=== PATIENT | female | born 1995 | race Caucasian/White ===

== ENCOUNTER 2019-12-13 14:25 | Outpatient (RCR) | payer MEDICAID, SELFPAY | END 2020-01-08 23:59 | disposition home or self-care (01) | LOC: SPT 14:25 | PROVIDERS: PCP Family Medicine; Visit Provider Family Medicine | DX: M54.5 Low back pain (principal); G89.29 Other chronic pain | CPT/HCPCS: 97110; 97161 ==

== ENCOUNTER 2020-01-09 06:00 | Outpatient (RCR) | payer MEDICAID, SELFPAY | END 2020-02-08 23:59 | disposition home or self-care (01) | LOC: SPT 06:00 | PROVIDERS: PCP Family Medicine; Visit Provider Family Medicine | DX: G89.29 Other chronic pain (principal); M54.5 Low back pain | CPT/HCPCS: 97110; 97164 ==

== ENCOUNTER 2020-03-18 08:33 | Outpatient (CLI) | payer MEDICAID, SELFPAY ==
--- NOTE | 2020-03-18 09:12 | MR_ITS ---
WS: [id number] MRI LUMBAR SPINE NONCONTRAST HISTORY: CHRONIC LBP COMPARISON: None available. TECHNIQUE: Sagittal and axial multisequence imaging is submitted. Very small central disc protrusion at C5-6. Normal lumbar alignment with no compression fractures or marrow edema. Disc spaces and vertebral body heights are well-preserved. Conus terminates normally at L1-2 disc level. L1-L2: Normal. L2-L3: Normal. L3-L4: Normal. L4-L5: Normal. L5-S1: Mild bilateral facet joint arthritis. There is a very shallow central to RIGHT paracentral dis c protrusion. No significant stenosis. Very minimal bilateral facet joint cysts and fluid in the face t joints. MR/MR lumbar spine wo con* [id number] IMPRESSION: 1. No significant central or foraminal stenosis. 2. Shallow central to RIGHT paracentral disc protrusion at L5-S1 without signi ficant encroachment upon the nerve roots. 3. Bilateral mild facet joint arthritis and synovitis at L5-S1.
== END 2020-03-18 08:34 | disposition home or self-care (01) ==
LOC: RADWPI 08:38
PROVIDERS: PCP Family Medicine; Visit Provider Family Medicine
DX: G89.29 Other chronic pain (principal); M51.27 Other intervertebral disc displacement, lumbosacral region; M65.9 Synovitis and tenosynovitis, unspecified; M47.817 Spondylosis without myelopathy or radiculopathy, lumbosacral region
CPT/HCPCS: 72148

== ENCOUNTER 2020-04-04 22:39 | Emergency (ER) | payer MEDICAID, SELFPAY ==
[2020-04-04 22:52] VITALS: BP 131/85; PULSE 107; RESP 14; TEMP 36.7; O2SAT 100; BMI 42.5
--- NOTE | 2020-04-04 22:57 | ED_ITS ---
HPI - Fall General: Chief Complaint: Fall Stated Complaint: FELL DOWN STAIRS, TWISTED BOTH KNEES Time Seen by Provider: 04/04/20 22:49 History of Present Illness: HPI Narrative: Patient is a 24-year-old female comes to the ED with left and right ankle injury. Injury occurred just prior to arrival. Patient says she was walking down stairs and putting her jacket on when she twisted her left ankle. She says she felt a pop and immediately had some pain. She continued walking down steps and twisted her right ankle as well. She says she felt a pop when twisting her right ankle as well. She rates her current pain a 7 out of 10. She says she has swelling in both her right and left ankles but says her right ankle hurts more than her left. She is able to put a little bit of weight on her left foot but is unable to put weight on her right due to pain. Denies any head trauma or loss of consciousness. Patient has not taken any pain meds before coming to the ED Associated symptoms-after fall: Denies abdominal pain, chest pain, headache(s), hematuria or neck pain Review of Systems Const: Denies: fever(s), chills or fatigue Eyes: Denies: change in vision or eye discomfort ENMT: Denies: throat pain, odynophagia, nasal discharge or nasal congestion Card: Denies: chest pain, palpitations, edema, swelling of feet/ankles, dysp karen on exertion or orthopnea Resp: Denies: dyspnea, productive cough or non-productive cough GI: Denies: abdominal pain, nausea, vomiting, diarrhea, constipation or hematochezia : Denies: flank pain, dysuria or hematuria Musc: Reports: extremity pain (Right and left ankle pain.) and extremity swelling; Denies: neck pain or back pain Skin/Breast: Denies: rash or new lesions Neuro: Denies: headache(s), numbness in extremities or weakness in extremities Physical Exam Const: COMMON NORMALS: no acute distress, patient oriented x3 and alert GENERAL APPEARANCE: cooperative and comfortable HENMT: COMMON NORMALS: normocephalic HEAD & SCALP: normocephalic MOUTH: Normal oral and palatal mucosa present THROAT: posterior oropharynx normal and uvula midline Eye: COMMON NORMALS: Equal, round and reactive pupils present PUPIL: Yes Equal, round and reactive pupils present Neck/C-Spine: COMMON NORMALS: supple GENERAL: Yes normal visual inspection Resp: COMMON NORMALS: normal respiratory effort, No retractions, No use of accessory muscles and clear to auscultation bilaterally AUSCULTATION: clear to auscultation bilaterally Cardio: COMMON NORMALS: regular rate, regular rhythm, S1 normal heart sound present, S2 normal heart sound present, No gallops present (Cardio), No clicks present (Cardio), No murmurs present (Cardio) and Peripheral pulses 2+ throughout RATE: regular rate RHYTHM: regular rhythm HEART SOUNDS: S1 normal heart sound present and S2 normal heart sound present PERIPHERAL PULSES: Peripheral pulses 2+ throughout GI: COMMON NORMALS: Normal to inspection, nondistended, normoactive bowel sounds present, Soft to palpation, non-tender and no masses PALPATION: Yes Soft to palpation : COMMON NORMALS: Yes no CVA tenderness BLADDER/KIDNEY EXAM: Yes no CVA tenderness Back/Pelvis: COMMON NORMALS: no CVA tenderness Extremity: GENERAL: Yes normal exam except as noted RIGHT LOWER EXTREMITY: Yes foot & digits Right ankle: Yes inspection (Mild swelling and ecchymosis over lateral malleolus. No visible deformity), Yes palpation (Tenderness to palpation over lateral malleolus.), Yes ROM (Limited due to pain) and Yes neurovascular exam (Intact, pedal pulse 2+.) LEFT LOWER EXTREMITY: Yes ankle joint (Mild swelling and ecchymosis over lateral malleolus. No visible deformity) Left ankle: Yes inspection, Yes palpation (Tenderness to palpation over lateral malleolus.), Yes ROM (Limited due to pain) and Yes neurovascular exam (Hand pedal pulse 2+) Neuro: COMMON NORMALS: patient oriented x3 and moves all extremities SENSORIUM/ORIENTATION: Yes alert Skin: GENERAL SKIN EXAM: dry skin Course Vital Signs: Vital signs: Vital Signs Temperature 98.1 F 04/04/20 22:52 Pulse Rate 88 04/04/20 23:26 Respiratory Rate 16 04/04/20 23:26 Blood Pressure 140/75 04/04/20 23:26 Pulse Oximetry 99 04/04/20 23:26 MDM - Fall MDM Narrative: Medical decision making narrative: Patient is a 24-year-old female comes to the ED with right left ankle injury. Injury occurred just prior to arrival. Patient was walking down steps and twisted both ankles. Upon exam patient has some swelling in both right and left ankles over the lateral malleolus. Patient is complaining of having more pain in right ankle than the left. No visible deformity seen. Patient neurovascular intact distally on both right and left foot. Pedal pulse 2+ bilaterally. Left ankle x-ray shows no acute fractures or findings. Right ankle x-ray shows nondisplaced distal fibula fracture and nondisplaced medial malleolus fracture of tibia. Patient's right leg was put in a posterior leg splint with stirrup. She is given crutches and I placed an order with case management to refer patient to orthopedic for reevaluation. Patient was discharged diagnosed with a right ankle fracture and a left ankle sprain. She was told to rest ice and elevate left and right ankle to help with symptoms. She was given a written prescription for [place] 5/325 mg tablets, 12 total. She was given crutches and told to not weight-bear on right foot. Return to ED precautions given. Informed her that embedded case manager will be contacting her to set up appoint with orthopedic doctor. Patient understood and agreed with plan. Imaging Data^: Xray Ortho: Attestation: I personally reviewed and interpreted this imaging study as follows: My impression: Left ankle?no acute fractures or findings. Soft tissue swelling over lateral malleolus. Right ankle [id number] fracture of distal fibula. Nondisplaced fracture of the medial malleolus of the distal tibia. Discharge Plan Discharge Patient Disposition: Home Clinical Impression: Ankle fracture, right Qualifiers: Encounter type: initial encounter Fracture type: closed Qualified Code(s): S82.891A - Other fracture of right lower leg, initial encounter for closed fracture Ankle sprain Qualifiers: Encounter type: initial encounter Involved ligament of ankle: anterior talofibular ligament Laterality: left Qualified Code(s): S93.492A - Sprain of other ligament of left ankle, initial encounter Condition: Stable Discharge Orders: Discharge ED (Routine); Ordered 04/04/20 Ordered By: Juan Reyes Referrals: Erica Lara MD [Primary Care Provider] - Discharge Diet: Regular Discharge Activity: Limit activity as instructed Patient Instructions: Ankle Fracture (ED), Ankle Sprain (ED), Opioid Safety Activity Restrictions/Additional Instructions: Follow-up with medical provider as directed. Case management should be contacting you in the next several days to set up an appointment with orthopedic doctor for reevaluation. Take medications as prescribed. Rest, ice and elevate left foot to help with symptoms. Use crutches and no weightbearing on right foot. Keep splint on and dry. You can also take [id number] naproxen or ibuprofen to help with pain per bottle instructions. Return to the ER or your medical provider if condition worsens. Please read and understand discharge instructions. If any questions, please ask. Stand Alone Forms: Work/School Release Coding Level of Care Code ED Staffing Associate for Ashleigh Fwd Exam Comprehensive
--- NOTE | 2020-04-04 23:05 | XR_ITS ---
WS: [id number] RIGHT ANKLE: 3 VIEW(S) TECHNIQUE: AP, oblique(s) and lateral. HISTORY: twist ankle injury COMPARISON: None available. Spiral type fracture of the distal third of the fibula without displacement. Fractures above the synd esmosis. Additional transverse fracture through the medial malleolus. No significant displacement. On the lateral projection there is a very subtle lucency through the posterior tibia. Cannot completely exclude a distal tibial fracture. Small joint effusion. No significant degenerative changes at the joint spaces. Moderate amount of soft tissue edema surrounding the ankle. XR/XR ankle RT min 3V* [id number] IMPRESSION: 1. Nondisplaced spiral fracture distal third of the fibula. 2. Nondisplaced transverse fracture medial malleolus. 3. Additional vague lucency through the posterior tibia. If this is a fracture there will be healing and callus formation on follow-up radiographs.
--- NOTE | 2020-04-04 23:05 | XR_ITS ---
WS: [id number] LEFT ANKLE: 3 VIEW(S) TECHNIQUE: AP, oblique(s) and lateral. HISTORY: twist ankle injury COMPARISON: 05/09/2018 No ankle fracture. There is a very tiny probable avulsion fracture from the lateral hindfoot. This is probably from the calcaneus. No joint effusion or widening of the ankle mortise. No significant degenerative changes at the joint spaces. Large amount of soft tissue edema along the lateral and anterior ankle. XR/XR ankle LT min 3V* [id number] IMPRESSION: 1. No ankle fracture. 2. Suspect tiny avulsion fracture from the lateral calcaneus. Seen only on the AP projection. If this is a fracture it may be very difficult to visualize by radiograph. CT may be necessary. 3. Large amount of soft tissue edema along the lateral anterior ankle.
[2020-04-04] MEDS: HYDROcodone-acetaminophen 7.5-325 mg Tablet 1 TAB PO (23:22)
[2020-04-04 23:26] VITALS: BP 140/75; PULSE 88; RESP 16; O2SAT 99
[2020-04-05] MEDS: HYDROcodone-acetaminophen 7.5-325 mg Tablet 2 TAB PO (00:45)
[2020-04-05 00:52] VITALS: BP 147/68; PULSE 82; RESP 16; TEMP 36.7; O2SAT 93
--- NOTE | 2020-04-05 08:47 | DCPLANNER ---
cemetery manager had message to schedule a follow up appointment for patient with ortho. cemetery manager called the ortho clinic, spoke with [place], gave clinic patients information. cemetery manager was told that patients information would be printed and reviewed. Clinic will call patient with appointment information.
--- NOTE | 2020-04-09 07:41 | DCPLANNER ---
Patient had a follow up appointment scheduled for 04.08.[address] Loving at [facility] - patient did attend appointment.
== END 2020-04-05 00:52 | disposition home or self-care (01) ==
PROVIDERS: Emergency Provider Physician Assistant; PCP Family Medicine
DX: S82.891A Other fracture of right lower leg, initial encounter for closed fracture (principal); S93.492A Sprain of other ligament of left ankle, initial encounter; X50.1XXA Overexertion from prolonged static or awkward postures, initial encounter
CPT/HCPCS: 29505; 73610; 99283; E0114

== ENCOUNTER 2020-04-08 14:55 | Outpatient (CLI) | payer MEDICAID, SELFPAY | END 2020-04-08 14:56 | disposition home or self-care (01) | LOC: SPT 14:55 | PROVIDERS: PCP Family Medicine; Visit Provider Orthopaedic Surgery | DX: Z46.89 Encounter for fitting and adjustment of other specified devices (principal); S82.841D Displaced bimalleolar fracture of right lower leg, subsequent encounter for closed fracture with routine healing; X58.XXXD Exposure to other specified factors, subsequent encounter | CPT/HCPCS: 87635; 97760; L4361 ==

== ENCOUNTER 2020-04-11 11:44 | Day surgery (SDC) | payer MEDICAID, SELFPAY ==
[2020-04-10 14:04] VITALS: BMI 42.5
--- NOTE | 2020-04-11 | SCC_ITS ---
Procedure Done: Lesion right medial and lateral malleolus 16.9 seconds of fluoroscopic guidance, for a cumulative dose of 0.39 mGy, was provided to Dr. Loving by the radiology department. C-arm images of the RIGHT ankle were saved for the patient's permanent record. [facility] HOSPITALChela
[2020-04-11 12:07] VITALS: BP 126/78; PULSE 96; RESP 18; TEMP 36.3; O2SAT 97
[2020-04-11 12:19] LABS: OR HCG Qualitative Urine Negative (Negative)
[2020-04-11] MEDS: sodium chloride 0.9% 1,000 ML 30 ML IV (12:21)
[2020-04-11] MEDS: midazolam 1 mg/mL INJ 2 mL 2 MG IVP (12:45)
--- NOTE | 2020-04-11 12:45 | ANES.PREANE2 ---
Pre-Anesthetic Assessment Pre-Anesthetic Assessment: Height/Weight: Height 1.63 m Weight 112.491 kg Temp Pulse Resp BP Pulse Ox 97.4 F L 96 18 126/78 97 04/11/20 12:07 04/11/20 12:07 04/11/20 12:07 04/11/20 12:07 04/11/20 12:07 Preop Diagnosis: Fracture right medial and lateral malleolus Proposed Procedure: Operation Date: 04/11/20 13:20 Proposed Procedures p ORIF right Ankle 11269 s82.841A(Right) - Rick Loving MD Familial anesthetic complications: None Was Beta Dre taken within 24 hours: N/A Last intake: Intake Last Liquid Date 04/10/20 Last Liquid Time 23:00 Last Solid Date 04/10/20 Last Solid Time 23:00 Social: Social History: No alcohol and No tobacco Exam: Pre-Anes Outpt Exam: alert, oriented x 3, clear to auscultation bilaterally and regular rate & rhythm Airway: Cervical ROM: WNL MP: 3 Dentition: Other (front tooth (fake/capped)) Metabolic: Metabolic: Morbid obesity Anesthetic Plan: ASA status: 1 Anesthesia: General and Regional (specify below) Risk of > 500 ml blood loss (7ml/kg in children): No Meds/Allergies Current Medications: Current Medications Generic Name Dose Route Start Last Admin Trade Name Freq PRN Reason Stop Dose Admin Sodium Chloride 1,000 mls @ 30 ml s/hr 04/11/20 12:00 04/11/20 12:21 Sodium Chloride 0.9% IV 04/12/20 11:59 30 mls/hr .Q24H FABIO Administration Data Anesthesia Other Labs: Laboratory Results - last 48 hr 04/11/20 12:17 Urine HCG, Qual Negative Cardiac Studies: No Data to Display
--- NOTE | 2020-04-11 12:46 | ANES.PROC ---
Anesthesia Procedures Procedure/Date: 04/11/20 Nerve Block ^: Nerve Block 1: Main Anesthesia: general anesthesia Time Out Performed: Yes Consent: requested by attending/covering physician, from patient, from other, risks and benefits reviewed and patient agrees to proceed Nerve block location: popliteal (R) Anesthesia monitors applied: pulse oximetry, EKG, BP cuff and oxygen Nerve block position: supine Anesthetic Used: ropivicaine 0.5% and with decadron (4 mg) Amount of anesthesia used (mL): 30 Ultrasound used to: recognize landmarks Nerve Stimulator Used?: No Interscalene/Femoral BLK: 4 stimuplex 21 g needle used for position and inplane approach, visualize local anesthetic spread and no vascular puncture identified Injection: neg aspiration of heme Patient Tolerated Procedure: no complications Complications: none
--- NOTE | 2020-04-11 16:07 | W.PM.OPSUD ---
Surgery/Procedure H&P Update DATE OF PROCEDURE: April 11, 2020 DATE H&P PERFORMED: 04/08/20 H&P UPDATE INFORMATION: I have reviewed H&P completed within last 30 days, I have examined patient prior to procedure and No changes to prior documentation PREOP DIAGNOSIS: Fracture right medial and lateral malleolus PLANNED PROCEDURE: Operation Date: 04/11/20 13:20 Proposed Procedures p ORIF right Ankle 90954 s82.841A(Right) - Rick Loving MD
[2020-04-11 17:28] VITALS: BP 134/60; PULSE 101; RESP 16; TEMP 36.5; O2SAT 96
[2020-04-11 17:34] VITALS: BP 138/60; PULSE 101; RESP 18; O2SAT 99
[2020-04-11 17:39] VITALS: BP 122/79; PULSE 101; RESP 19; TEMP 36.3; O2SAT 98
[2020-04-11 17:41] VITALS: BP 118/72; PULSE 100; RESP 16; TEMP 36.6; O2SAT 96
--- NOTE | 2020-04-11 17:42 | XR_ITS ---
WS: [id number] Right ankle, AP and lateral views with C-arm fluoroscopy, 04/11/2020 Clinical Data: ORIF RT. ANKLE Comparison: None. Findings: There is a distal fibular plate applied with multiple screws reduce distal right fibular fracture. Th ere are oblique screws reducing the medial malleolar fracture. XR/XR ankle RT 2V 25152 Impression: Internal fixation of bimalleolar fracture.
--- NOTE | 2020-04-11 17:48 | PM.OP ---
Operative Report Date of procedure: April 11, 2020 Pre-op Diagnosis: Fracture right medial and lateral malleolus Post-op diagnosis: same Post-op Findings: Same Procedure Done: Lesion right medial and lateral malleolus Implants: Jessi Variax 7 hole semitubular plate with 6 screws 2 4.0 mm canulated with washers Pathology: none sent Surgeon: Rick Loving Anesthesia: General Estimated blood loss (mL): 20 Tourniquet time (min): 52 Findings: The patient is a low transverse fracture of the right medial malleolus and a spiral fracture of the lateral malleolus just above the level of the mortise Condition: stable Disposition: PACU Procedure: The patient was taken to the operating room and given 2 g of Ancef. General anesthesia is provided. She is prepped and draped with a bump under the right hip. Timeout was performed. A tourniquet was inflated to 350 mm due to the size the patient's leg. A 5 cm long incision was made over the posterior fibula overlying the fracture. Dissection was carried down full-thickness to the lateral periosteum. A lobster claw clamp was used to bring the fibula to length and reduced it. It was held fixed with a single 3.5 millimeter screw. A 7 hole semitubular plate was then contoured posteriorly. It was fixed distally and proximally with 3 screws each providing a buttress to the fracture. Eight 4 cm long incision was made over the medial malleolus dissection carried down full-thicknes to the fracture fragments. Periosteum was elevated from the fracture site with a scalpel. A towel clamp was used to reduce the tip of the medial malleolus to the distal tibia. The 4.0 mm Asnis screws were used to passed to partially-threaded cancellous screws with washers from the tip of the fragment proximally both with excellent fixation. Intraoperative imaging showed anatomic alignment of the fracture fragments. Wounds were irrigated with saline. Deep tissues were closed with 2-0 Vicryl. The skin was closed with christ bilaterally. Xeroflo gauze, 4 x 4's, web roll, and an Mitchell wrap were applied. This patient was placed in a postop boot. She was extubated and taken to recovery room in stable condition.
[2020-04-11 17:56] VITALS: BP 123/71; PULSE 90; RESP 16; TEMP 36.6; O2SAT 97
--- NOTE | 2020-04-11 18:01 | ANE.PACU2 ---
Inpatient post-anesthesia follow up: Vital signs: Temperature 98 F Pulse Rate 100 Respiratory Rate 16 Blood Pressure 118/72 Pulse Oximetry 96 Oxygen Delivery Me thod Room Air Oxygen Flow Rate 8 Fraction of Inspir ed Oxygen Nausea and vomiting: No Pain level: 2 Mental status: Baseline
== END 2020-04-11 19:00 | disposition home or self-care (01) ==
PROVIDERS: PCP Family Medicine; Visit Provider Orthopaedic Surgery
PROC: (CPT 27814; principal; 2020-04-11 13:20)
DX: S82.844A Nondisplaced bimalleolar fracture of right lower leg, initial encounter for closed fracture (principal); X58.XXXA Exposure to other specified factors, initial encounter; E66.01 Morbid (severe) obesity due to excess calories; Z68.41 Body mass index [BMI] 40.0-44.9, adult
CPT/HCPCS: 27814; 64450; 73600; 76000; 76942; 81025; 84703; C1713; J0690; J1100; J1580; J2250; J2405; J2795; J3010; J7030

== ENCOUNTER → 2020-05-21 13:38 | Outpatient (BNVA) | payer MEDICAID, SELFPAY | PROVIDERS: PCP Family Medicine; Visit Provider Orthopaedic Surgery | DX: Z48.89 Encounter for other specified surgical aftercare (principal) | CPT/HCPCS: 73610 ==

== ENCOUNTER → 2020-06-11 14:30 | Outpatient (BNVA) | payer MEDICAID, SELFPAY | PROVIDERS: PCP Family Medicine; Visit Provider Orthopaedic Surgery | DX: Z48.89 Encounter for other specified surgical aftercare (principal) | CPT/HCPCS: 73610 ==

== ENCOUNTER → 2020-07-09 14:27 | Outpatient (BNVA) | payer MEDICAID, SELFPAY | PROVIDERS: PCP Family Medicine; Visit Provider Orthopaedic Surgery | DX: Z47.89 Encounter for other orthopedic aftercare (principal) | CPT/HCPCS: 73610 ==

== ENCOUNTER 2020-12-06 21:36 | Emergency (ER) | payer MEDICAID, SELFPAY ==
[2020-12-06 21:58] VITALS: BP 133/77; PULSE 98; RESP 18; TEMP 36.4; O2SAT 96; BMI 42.9
--- NOTE | 2020-12-06 23:37 | W.ED.SOB ---
Documented by User: HANNAH Pan 12/07/20 01:01 HPI - SOB/Dyspnea General: Chief Complaint: Shortness of Breath/Dyspnea Stated Complaint: N\V\Coughing SOB Time Seen by Provider: 12/06/20 23:37 History of Present Illness: HPI Narrative: Patient comes in with frequent coughing for last 3 months. Patient also reports some episodes of shortness of breath that seem to have worsened over the last 3 to 4 days. Patient states that she has been evaluated several times and been told she had a viral infection. This last time she complained of some sore throat and was evaluated and instructed that she had a's viral infection. Patient reports that her over the last couple days though her shortness of breath is worsened. Patient appears in no acute distress. Patient appears well. Patient appears in no pain. Patient reports that she has a history of asthma as a child. Patient denies smoking but is exposed to it to secondhand. MD elicited complaint: shortness of breath and cough Review of Systems General: Reports: 10 or more systems reviewed and unremarkable except in HPI and below Resp: Reports: dyspnea and non-productive cough Physical Exam Const: COMMON NORMALS: no acute distress and patient oriented x3 GENERAL APPEARANCE: cooperative HENMT: COMMON NORMALS: normocephalic and Normal external nose present HEAD & SCALP: normal to inspection and normocephalic NOSE: Normal external nose present MOUTH: Normal oral and palatal mucosa present THROAT: posterior oropharynx normal Eye: GENERAL EYE: appearance normal, both eyes and all related structures Neck/C-Spine: COMMON NORMALS: full ROM Lymph: LYMPHATIC: no lymphadenopathy noted Chest: COMMONS NORMALS: normal inspection of the chest Resp: COMMON NORMALS: normal respiratory effort EFFORT & INSPECTION: Yes able to speak in complete sentences AUSCULTATION: wheezes Cardio: COMMON NORMALS: regular rate and regular rhythm RATE: regular rate RHYTHM: regular rhythm GI: COMMON NORMALS: non-tender Back/Pelvis: COMMON NORMALS: thoracic and lumbar spine normal to inspection Extremity: COMMON NORMALS: normal to inspection Neuro: COMMON NORMALS: patient oriented x3 and moves all extremities Psych: COMMON NORMALS: mental status grossly normal and cooperative Skin: COMMON NORMALS: no rashes or lesions noted GENERAL SKIN EXAM: no rashes or lesions noted Course Vital Signs: Vital signs: Vital Signs Temperature 97.6 F 12/06/20 21:58 Pulse Rate 86 10/30/21 01:27 Respiratory Rate 18 12/07/20 01:27 Blood Pressure 126/74 12/07/20 01:27 Pulse Oximetry 97 12/07/20 01:27 MDM - SOB/Dyspnea MDM Narrative: Medical decision making narrative: 25-year-old female comes in today with persistent cough on and off for the last 3 months. Patient also reports episodes of wheezing at times. Patient has been given albuterol inhaler and oral steroids and antibiotics with minimal to no relief. On exam patient appears in no acute distress. Patient has wheezing throughout lung galloway. Skin is warm and dry. Differential diagnosis includes but not limited to asthma, bronchitis, pneumonia. Chest x-ray appeared normal. Patient was given a respiratory treatment of albuterol and ipratropium with improvement in lung sounds. Patient denied any smoking but does get secondhand smoke through her fianc?. Plan for patient to be started on Advair Diskus 250 per 50 twice daily and albuterol as needed. Patient was given 1 dose of dexamethasone 10 mg in the ER. Case management was requested for patient to follow-up with pulmonology for further testing and evaluation. Discharge Plan Discharge Patient Disposition: Home Clinical Impression: Asthma with exacerbation Qualifiers: Asthma severity: moderate Asthma persistence: persistent Qualified Code(s): J45.41 - Moderate persistent asthma with (acute) exacerbation Condition: Stable Prescriptions: New Advair Diskus 250-50 mcg/dose blister with device 1 inh inhalation BID Qty: 60 RF: 3 albuterol sulfate 90 mcg/actuation HFA aerosol inhaler 2 inh inhalation Q4H PRN (Reason: shortness of breath or wheezing) Qty: 8.5 RF: 0 No Action (DME) Luigi Walker See Rx Instructions .ROUTE .MEDSUPPLY Qty: 1 RF: 0 Discharge Orders: Discharge ED (Routine); Ordered 12/07/20 Ordered By: Sidney Buenrostro Referrals: Erica Lara MD [Primary Care Provider] - Discharge Diet: Usual diet Discharge Activity: Increase activity as tolerated Patient Instructions: Asthma (ED), Opioid Safety Activity Restrictions/Additional Instructions: Use Advair Diskus inhaler 1 inhalation twice a day. Do good oral care after inhalation. Use albuterol as needed for respiratory difficulty. Drink plenty of water. Use acetaminophen and ibuprofen for discomfort. Follow-up with primary care in 1 week for recheck. Coding Level of Care Code ED Administrative Project Coordinator for Chg Fwd Exam Comprehensive Documented by User: Tre Stoner DO 12/07/20 02:56 HPI - SOB/Dyspnea General: Chief Complaint: Shortness of Breath/Dyspnea Stated Complaint: N\V\Coughing SOB Time Seen by Provider: 12/06/20 23:37 Course Vital Signs: Vital signs: Vital Signs Temperature 97.6 F 12/06/20 21:58 Pulse Rate 86 12/07/20 01:27 Respiratory Rate 18 12/07/20 01:27 Blood Pressure 126/74 12/07/20 01:27 Pulse Oximetry 97 12/07/20 01:27 MDM - SOB/Dyspnea MDM Narrative: Medical decision making narrative: This patient was originally seen by HANNAH Del Valle. I agree with his history, evaluation, and treatment. Discharge Plan Discharge Patient Disposition: Home Clinical Impression: Asthma with exacerbation Qualifiers: Asthma severity: moderate Asthma persistence: persistent Qualified Code(s): J45.41 - Moderate persistent asthma with (acute) exacerbation Condition: Stable Prescriptions: New Advair Diskus 250-50 mcg/dose blister with device 1 inh inhalation BID Qty: 60 RF: 3 albuterol sulfate 90 mcg/actuation HFA aerosol inhaler 2 inh inhalation Q4H PRN (Reason: shortness of breath or wheezing) Qty: 8.5 RF: 0 No Action (DME) Cam Walker See Rx Instructions .ROUTE .MEDSUPPLY Qty: 1 RF: 0 Discharge Orders: Discharge ED (Routine); Ordered 12/07/20 Ordered By: Sidney Buenrostro Referrals: Erica Lara MD [Primary Care Provider] - Discharge Diet: Usual diet Discharge Activity: Increase activity as tolerated Patient Instructions: Asthma (ED), Opioid Safety Activity Restrictions/Additional Instructions: Use Advair Diskus inhaler 1 inhalation twice a day. Do good oral care after inhalation. Use albuterol as needed for respiratory difficulty. Drink plenty of water. Use acetaminophen and ibuprofen for discomfort. Follow-up with primary care in 1 week for recheck. Coding Level of Care Code ED Administrative Project Coordinator for Ashleigh Fwd Exam Comprehensive
--- NOTE | 2020-12-06 23:45 | XRR_ITS ---
PROCEDURE INFORMATION: Exam: XR Chest Exam date and time: 12/06/2020 11:45 PM Age: 25 years old Clinical indication: Cough and wheezing; Patient HX: Cough/wheezing. TECHNIQUE: Imaging protocol: XR of the chest. Views: 1 view. COMPARISON: No relevant prior studies available. FINDINGS: Lungs: Unremarkable. No consolidation. Pleural spaces: Unremarkable. No pleural effusion. No pneumothorax. Heart/Mediastinum: Unremarkable. No cardiomegaly. Bones/joints: Unremarkable. XR/XR chest 1V portable [id number] IMPRESSION: No acute findings. Radiation Dose CTDIVOL = (mGy): DLP = (mGy-cm)
[2020-12-07] MEDS: dexamethasone 4 mg Tablet 10 MG PO (00:11)
[2020-12-07 00:40] VITALS: PULSE 90; RESP 18; O2SAT 97
[2020-12-07] MEDS: ipratropium-albuterol 3 mL Neb INHALATION (00:40)
[2020-12-07 00:50] VITALS: PULSE 101
[2020-12-07 01:26] VITALS: BP 126/74; PULSE 86; RESP 18; O2SAT 97
[2020-12-07 01:27] VITALS: BP 126/74; PULSE 86; RESP 18; O2SAT 97
--- NOTE | 2020-12-12 13:30 | DCPLANNER ---
Addendum entered by Sindi Cruz 12/12/20 13:32: A follow up appointment is scheduled for Wednesday, January 20, 2021 at 8:[address] Bhagat. global marketing operations manager called phone number [phone], unable to speak with patient at this time, a voicemail was left for patient with the appointment information. Original Note: global marketing operations manager had message to schedule a follow up appointment for patient with [facility]. global marketing operations manager called [facility], spoke with Paola, gave clinic patients information. global marketing operations manager was told that patients information would be printed and reviewed. Clinic will call patient with appointment information.
--- NOTE | 2021-01-31 12:00 | DCPLANNER ---
Patient had a follow up appointment scheduled with [facility] - patient did attend appointment.
== END 2020-12-07 01:20 | disposition home or self-care (01) ==
PROVIDERS: Emergency Provider Nurse Practitioner Family; PCP Family Medicine
DX: J45.41 Moderate persistent asthma with (acute) exacerbation (principal)
CPT/HCPCS: 71045; 94640; 99283; J8540

== ENCOUNTER 2021-01-20 10:08 | Outpatient (CLI) | payer MEDICAID, SELFPAY ==
[2021-01-20 11:26] LABS: Basophils # 0.1 10^3/uL (0.0-0.1); Basophils % 0.7 %; Eosinophils % 10.1 %; Hematocrit 42.9 % (37.0-47.0); Hemoglobin 14.4 g/dL (11.5-15.3); Lymphocytes # 2.9 10^3/uL (0.8-4.8); Lymphocytes % 30.4 %; Mean Corpuscular HGB Conc 33.6 g/dL (30.0-36.0); Mean Corpuscular Hemoglobin 27.7 pg (28.0-34.0); Mean Corpuscular Volume 82.5 fl (81-99); Mean Platelet Volume 9.3 fL (7.4-10.4); Monocytes # 0.6 10^3/uL (0.2-0.9); Monocytes % 6.1 %; Neutrophils % 52.4 %; Nucleated Red Blood Cells % 0 %; Platelet Count 380 10^3/cmm (130-400); Red Cell Distribution Width 12.9 % (12.1-15.1); White Blood Count 9.4 10^3/uL (4.0-10.0)
[2021-01-21 16:07] LABS: Immunoglobulin E 710 kU/L (<OR=114)
[2021-01-21 16:13] LABS: Alternaria Alternata (M6) Ige <0.10 kU/L; Alternaria Class 0; Bermuda Class 0/1; Bermuda Grass (G2) Ige 0.16 kU/L; Cat Dander (E1) Ige 0.22 kU/L; Cat Dander Class 0/1; D. Farinae Class 4; Dermatophagoides Class 4; Dog Dander (E5) Ige 2.38 kU/L; Dog Dander Class 2; Elm (T8) Ige 0.78 kU/L; Elm Class 2; House Dust (Greer) (H1) Ige 1.61 kU/L; House Dust (Hollister- Stier) 2.05 kU/L; House Dust Class 2; Immunoglobulin E 729 kU/L (<OR=114); Johnson Grass (G10) Ige 0.15 kU/L; Johnson Grass Cl 0/1; June Grass Class 0/1; June Grass(Kentucky Blue) (G8) 0.33 kU/L; Maple (Box Elder) (T1) Ige 0.56 kU/L; Maple Class 1; Meadow Fescue (G4) Ige 0.46 kU/L; Meadow Fescue Class 1; Mucor Racemosus Class 2; Oak (T7) Ige 0.52 kU/L; Oak Class 1; Orchard Grass (Cocksfoot) (G3) 0.29 kU/L; Penicillium Class 0; Penicillium Notatum (M1) Ige <0.10 kU/L; Perennial Rye Grass (G5) Ige 0.39 kU/L; Perennial Rye Grass Class 1; Sweet Vernal Class 0/1; Sweet Vernal Grass (G1) Ige 0.21 kU/L; Timothy Grass (G6) Ige 0.21 kU/L; Timothy Grass Class 0/1
[2021-01-23 17:42] LABS: English Plantain (W9) Ige 0.57 kU/L; English Plantain Class 1; Lamb'S Quarters (Goose Foot) 0.86 kU/L; Lamb'S Quarters Class 2; Ragweeed Class 3; Rough Marsh Elder (W16) Ige 0.27 kU/L; Rough Marsh Elder Class 0/1
[2021-01-23 22:53] LABS: Aspergillus Fumigatus, Igg Ab, 20.3 mg/L (<=102)
== END 2021-01-20 10:09 | disposition home or self-care (01) ==
PROVIDERS: PCP Family Medicine; Visit Provider Internal Medicine Critical Care Medicine
DX: R06.02 Shortness of breath (principal); J45.909 Unspecified asthma, uncomplicated
CPT/HCPCS: 36415; 82785; 85025; 86003

== ENCOUNTER → 2021-04-23 09:08 | Outpatient (BNVA) | payer MEDICAID, SELFPAY | PROVIDERS: PCP Family Medicine Adult Medicine; Visit Provider Internal Medicine Critical Care Medicine | DX: J45.50 Severe persistent asthma, uncomplicated (principal); G47.10 Hypersomnia, unspecified; F41.9 Anxiety disorder, unspecified; J45.909 Unspecified asthma, uncomplicated; F43.10 Post-traumatic stress disorder, unspecified | CPT/HCPCS: 99214 ==

== ENCOUNTER 2021-05-15 14:09 | Outpatient (CLI) | payer MEDICAID, SELFPAY ==
--- NOTE | 2021-05-15 10:51 | PFTS_ITS ---
Date of Study:05/15/21 Date of Dictation: MECHANICS: Forced vital capacity (FVC) is . Forced expiratory volume in one second (FEV1) is . FEV1/FVC is . FLOW VOLUME LOOP: . LUNG VOLUMES: Total lung capacity (TLC) is . Residual volume (RV) is . DIFFUSING CAPACITY FOR CARBON MONOXIDE: . INTERPRETATION: The pulmonary function tests are . mechanics and lung volumes. Gas exchange (DLCO) is . MTDD
--- NOTE | 2021-05-15 14:42 | PFTS_ITS ---
Date of Study:05/15/21 Date of Dictation: MECHANICS: Forced vital capacity (FVC) is normal. Forced expiratory volume in one second (FEV1) is . FEV1/FVC is normal. FLOW VOLUME LOOP: Scooping present. LUNG VOLUMES: Total lung capacity (TLC) is normal. Residual volume (RV) is increased. DIFFUSING CAPACITY FOR CARBON MONOXIDE: Increased. INTERPRETATION: The prebronchodilator spirometry is consistent with severe obstruction. The postbronchodilator spirometry is consistent with moderate obstruction. There is a significant postbronchodilator response. Lung volumes are consistent with air trapping. Gas exchange (DLCO) is increased. The pulmonary function test is suggestive of reversible airflow obstruction most likely asthma. MTDD
== END 2021-05-15 14:10 | disposition home or self-care (01) ==
LOC: RT 14:10
PROVIDERS: PCP Family Medicine Adult Medicine; Visit Provider Internal Medicine Critical Care Medicine
DX: J45.50 Severe persistent asthma, uncomplicated (principal)
CPT/HCPCS: 94060; 94726; 94729

== ENCOUNTER 2021-05-17 06:11 | Emergency (ER) | payer MEDICAID, SELFPAY ==
[2021-05-17 06:14] VITALS: BP 178/97; PULSE 113; RESP 27; TEMP 37.2; O2SAT 95; BMI 43.0
--- NOTE | 2021-05-17 06:15 | XRR_ITS ---
PROCEDURE INFORMATION: Exam: XR Chest Exam date and time: 05/17/2021 6:39 AM Age: 25 years old Clinical indication: Cough and dyspnea; Additional info: Dyspnea/cough TECHNIQUE: Imaging protocol: XR of the chest. Views: 1 view. COMPARISON: CR XR chest 1V portable [id number] 12/07/2020 12:02 AM FINDINGS: Lungs: Faint bibasilar airspace opacities. Pleural spaces: Unremarkable. No pleural effusion. No pneumothorax. Heart/Mediastinum: Cardiomediastinal silhouette is within normal limits. Bones/joints: Unremarkable. XR/XR chest 1V portable [id number] IMPRESSION: Faint bibasilar airspace opacities may reflect pneumonia.
[2021-05-17 06:23] VITALS: BP 178/97; PULSE 110; RESP 20; TEMP 37.1; O2SAT 99
--- NOTE | 2021-05-17 06:25 | ED_ITS ---
HPI - SOB/Dyspnea General: Chief Complaint: Shortness of Breath/Dyspnea Stated Complaint: shortness of breath Time Seen by Provider: 05/17/21 06:14 Source: patient Mode of arrival: ambulatory Limitations: no limitations History of Present Illness: HPI Narrative: 25-year-old female with a history of asthma precipitated by exposure to allergens she seen Dr. Bhagat in the past. She reportedly has been rubber months for the last 2 days been worse. She was seen last month by Dr. Bhagat and switched from Advair to Trelegy. She is also on cetirizine and Singulair although she has not been using any of those regularly she did mention using single doses of the Advair sometime in the last few days. She used an albuterol Atrovent treatment by nebulizer about an hour and a half before coming in and states it did not really work very well last night she was having trouble did not respond to albuterol then either. She has had a lot of increased nasal drainage recently and was treated with a course of antibiotics about 3 weeks ago. [facility] records patient lives at home with a cat. She does not smoke. MD elicited complaint: shortness of breath, cough and asthma attack Pertinent past history: asthma Onset (ago): minute(s) Context: allergen exposure Timing: intermittent and progressively worsening Severity: severe Exacerbating factors: exertion and coughing Relieving factors: nothing Known history of: asthma Associated symptoms: Reports chest congestion and cough; Deny abdominal pain, chest pain, diaphoresis, dizziness, extremity pain, fever(s), hemoptysis, lightheadedness, myalgias, nausea, orthopnea, palpitations, paresthesias, polydipsia, polyuria, rash, sense of impending doom, syncope or vomiting Treatment prior to arrival: none Review of Systems Const: Denies: fever(s) or diaphoresis ENMT: Denies: throat pain, ear or mastoid pain, nasal discharge or nasal congestion Card: Denies: chest pain, palpitations, lightheadedness, syncope or orthopnea Resp: Reports: dyspnea, non-productive cough, wheezing and chest congestion; Denies: hemoptysis GI: Denies: abdominal pain, nausea or vomiting : Denies: flank pain, difficulty voiding, dysuria, urinary frequency or urinary urgency Musc: Denies: extremity pain Skin/Breast: Denies: rash or pruritus Neuro: Denies: dizziness Endo: Denies: polyuria or polydipsia PFSH ED PFSH: Medical History Anxiety Asthma PTSD (post-traumatic stress disorder) Surgical History History of ankle surgery Family History Grandmother Cancer lung cancer Social History Smoking and tobacco status: never smoked Smoking risk assessment/counseling performed?: Yes Alcohol intake: never Physical Exam Const: COMMON NORMALS: no acute distress GENERAL APPEARANCE: cooperative and comfortable ORIENTATION/CONSCIOUSNESS: Yes awake, Yes oriented to person, Yes oriented to place and Yes oriented to time HENMT: COMMON NORMALS: normocephalic, atraumatic and hearing grossly normal bilaterally HEAD & SCALP: normocephalic and atraumatic Neck/C-Spine: COMMON NORMALS: no JVD Resp: EFFORT & INSPECTION: Yes uses accessory muscles AUSCULTATION: wheezes Cardio: COMMON NORMALS: no JVD, regular rhythm and No murmurs present (Cardio) RATE: tachycardic RHYTHM: regular rhythm GI: COMMON NORMALS: Soft to palpation and No hepatosplenomegaly present AUSCULTATION: Yes normoactive bowel sounds PALPATION: Yes Soft to palpation, No Tenderness to palpation present (GI), No Guarding due to palpation present (GI) and Yes No hepatosplenomegaly present Extremity: COMMON NORMALS: normal to inspection, capillary refill normal, no clubbing, cyanosis or edema, no calf tenderness and no pedal edema Neuro: SENSORIUM/ORIENTATION: Yes oriented to person, Yes oriented to place and Yes oriented to time Skin: COMMON NORMALS: no rashes or lesions noted GENERAL SKIN EXAM: no rashes or lesions noted Course Vital Signs: Vital signs: Vital Signs Temperature 98.8 F 05/17/21 06:23 Pulse Rate 105 H 05/17/21 07:11 Respiratory Rate 22 H 05/17/21 07:11 Blood Pressure 136/83 05/17/21 07:11 Pulse Oximetry 97 05/17/21 07:11 MDM - SOB/Dyspnea Medical Decision Making Reviewed labs and imaging with the patient. Her eosinophil count is elevated. Discussed with her allergen avoidance. She has not been able to start the Trelegy that Dr. Mathis previously prescribed encourage her to use the Advair regularly she had been using it more as needed discussed with her that the really intended to be a maintenance medicine. We will increase her cetirizine to twice daily prednisone burst and taper and also resume the Singulair Singulair and cetirizine should be regular routine medications for maintenance. Albuterol every 4 hours while awake if has any wheezing. Follow-up with Dr. Gilmore's office next week return if has problems. Stressed importance of allergen avoidance. Medical Records I reviewed the patient's medical records. Lab Data I reviewed the patient's lab results. : 05/17/21 06:30 Labs/Radiology: Laboratory Results WBC 11.2 10^3/uL (4.0-10.0) H 05/17/21 06:30 RBC 4.91 10^6/uL (4.1-5.3) 05/17/21 06:30 Hgb 13.4 g/dL (11.5-15.3) 05/17/21 06:30 Hct 40.7 % (37.0-47.0) 05/17/21 06:30 MCV 82.9 fl (81-99) 05/17/21 06:30 MCH 27.3 pg (28.0-34.0) L 05/17/21 06:30 MCHC 32.9 g/dL (30.0-36.0) 05/17/21 06:30 RDW 13.7 % (12.1-15.1) 05/17/21 06:30 Plt Count 348 10^3/cmm (130-400) 05/17/21 06:30 MPV 9.4 fL (7.4-10.4) 05/17/21 06:30 Neut % (Auto) 52.9 % 05/17/21 06:30 Lymph % (Auto) 28.3 % 05/17/21 06:30 [place] % (Auto) 5.3 % 05/17/21 06:30 Eos % (Auto) 12.5 % 05/17/21 06:30 Baso % (Auto) 0.6 % 05/17/21 06:30 Neut # (Auto) 5.91 10^3/uL (1.8-7.7) 05/17/21 06:30 Lymph # (Auto) 3.2 10^3/uL (0.8-4.8) 05/17/21 06:30 [place] # (Auto) 0.6 10^3/uL (0.2-0.9) 05/17/21 06:30 Eos # (Auto) 1.4 10^3/uL (0.0-0.8) H 05/17/21 06:30 Baso # (Auto) 0.1 10^3/uL (0.0-0.1) 05/17/21 06:30 Nucleated RBC % (auto) 0 % 05/17/21 06:30 Nucleated RBCs # 0.0 /100WBC 05/17/21 06:30 Discharge Plan Discharge Patient Disposition: Home Clinical Impression: Asthma with exacerbation Condition: Stable Prescriptions: New albuterol sulfate 90 mcg/actuation HFA aerosol inhaler 2 inh INHALATION Q4H PRN (Reason: shortness of breath or wheezing) Qty: 18 0RF prednisone 20 mg tablet 20 mg PO TID Qty: 15 0RF Rx Instructions: 1 p.o. 3 times daily x3 days, 1 p.o. twice daily x2 days, 1 p.o. daily x2 days No Action benzonatate [Tessalon Perles] 100 mg capsule 100 mg PO TID PRN (Reason: cough) 30 Days Qty: 90 2RF Trelegy Ellipta 200-62.5-25 mcg blister with device 1 inh inhalation Q24H 30 Days Qty: 60 3RF diphenhydramine HCl [Allergy Relief(diphenhydramin)] 25 mg tablet 25 mg PO Q6H PRN0RF albuterol sulfate 90 mcg/actuation HFA aerosol inhaler 2 inh inhalation Q4H PRN (Reason: shortness of breath or wheezing) Qty: 8.5 2RF cetirizine 10 mg tablet 10 mg PO DAILY PRN (Reason: allergy symptoms) Qty: 30 0RF montelukast [Singulair] 10 mg tablet 10 mg PO DAILY Qty: 30 3RF ipratropium-albuterol 0.5 mg-3 mg(2.5 mg base)/3 mL solution for nebulization 3 ml inhalation Q4H PRN (Reason: wheezing) Qty: 180 0RF amoxicillin-pot clavulanate [Augmentin] 875-125 mg tablet 1 tab PO BID 7 Days Qty: 14 0RF (DME) Nebulizer & supplies See Rx Instructions .Route .MEDSUPPLY Qty: 1 0RF Rx Instructions: As directed Spiriva Respimat 1.25 mcg/actuation mist 2 puff inhalation DAILY 30 Days Qty: 4 3RF Discharge Orders: Discharge ED (Routine); Ordered 05/17/21 Ordered By: Kenneth Castaneda Referrals: Danish Avalos MD [Primary Care Provider] - Discharge Diet: Usual diet Discharge Activity: Increase activity as tolerated Patient Instructions: Opioid Safety Activity Restrictions/Additional Instructions: Avoid allergens as much as possible. Use Advair regularly as prescribed. Use rescue inhaler or nebulizers every 4 hours as needed. Restart the cetirizine take 1 p.o. twice daily every day regularly. Also recommend you restart the montelukast 10 mg daily. Follow-up with Dr. [place] within the next week. Coding Level of Care Code ED Resource Paraprofessional for Ashleigh Fwd Exam Comprehensive
[2021-05-17] MEDS: ipratropium-albuterol 3 mL Neb INHALATION (06:30)
[2021-05-17 06:31] VITALS: PULSE 102; RESP 22; O2SAT 94
[2021-05-17 06:36] VITALS: PULSE 104
[2021-05-17 06:45] LABS: Basophils # 0.1 10^3/uL (0.0-0.1); Basophils % 0.6 %; Eosinophils # 1.4 10^3/uL (0.0-0.8); Eosinophils % 12.5 %; Hematocrit 40.7 % (37.0-47.0); Hemoglobin 13.4 g/dL (11.5-15.3); Lymphocytes # 3.2 10^3/uL (0.8-4.8); Lymphocytes % 28.3 %; Mean Corpuscular HGB Conc 32.9 g/dL (30.0-36.0); Mean Corpuscular Hemoglobin 27.3 pg (28.0-34.0); Mean Corpuscular Volume 82.9 fl (81-99); Mean Platelet Volume 9.4 fL (7.4-10.4); Monocytes # 0.6 10^3/uL (0.2-0.9); Monocytes % 5.3 %; Neutrophils # 5.91 10^3/uL (1.8-7.7); Neutrophils % 52.9 %; Nucleated Red Blood Cells % 0 %; Platelet Count 348 10^3/cmm (130-400); Red Blood Count 4.91 10^6/uL (4.1-5.3); Red Cell Distribution Width 13.7 % (12.1-15.1); White Blood Count 11.2 10^3/uL (4.0-10.0)
[2021-05-17 07:11] VITALS: BP 136/83; PULSE 105; RESP 22; O2SAT 97
== END 2021-05-17 07:13 | disposition home or self-care (01) ==
PROVIDERS: Emergency Provider Family Medicine; PCP Family Medicine Adult Medicine
DX: J45.901 Unspecified asthma with (acute) exacerbation (principal)
CPT/HCPCS: 71045; 85025; 94640; 96374; 99284; J2930

== ENCOUNTER → 2021-05-23 09:07 | Outpatient (BNVA) | payer MEDICAID, SELFPAY | PROVIDERS: PCP Family Medicine Adult Medicine; Visit Provider Internal Medicine Critical Care Medicine | DX: J45.50 Severe persistent asthma, uncomplicated (principal); J30.9 Allergic rhinitis, unspecified; G47.10 Hypersomnia, unspecified | CPT/HCPCS: 99214 ==

== ENCOUNTER → 2021-06-23 10:13 | Outpatient (BNVA) | payer MEDICAID, SELFPAY | PROVIDERS: PCP Family Medicine Adult Medicine; Visit Provider Internal Medicine Critical Care Medicine | DX: J45.50 Severe persistent asthma, uncomplicated (principal); G47.10 Hypersomnia, unspecified; J30.9 Allergic rhinitis, unspecified | CPT/HCPCS: 99214 ==

== ENCOUNTER → 2021-09-09 10:15 | Outpatient (BNVA) | payer MEDICAID, SELFPAY | PROVIDERS: PCP Family Medicine Adult Medicine; Visit Provider Nurse Practitioner Women's Health | DX: N92.6 Irregular menstruation, unspecified (principal) | CPT/HCPCS: 81025 ==

== ENCOUNTER → 2021-09-16 14:06 | Outpatient (BNVA) | payer MEDICAID, SELFPAY | PROVIDERS: PCP Family Medicine Adult Medicine; Visit Provider Obstetrics & Gynecology | DX: N91.2 Amenorrhea, unspecified (principal) | CPT/HCPCS: 76801; 76817 ==

== ENCOUNTER → 2021-09-22 13:50 | Outpatient (BNVA) | payer MEDICAID, SELFPAY | PROVIDERS: PCP Family Medicine Adult Medicine; Visit Provider Internal Medicine Critical Care Medicine | DX: J45.50 Severe persistent asthma, uncomplicated (principal); J30.9 Allergic rhinitis, unspecified; G47.10 Hypersomnia, unspecified; J82.83 Eosinophilic asthma; Z33.1 Pregnant state, incidental | CPT/HCPCS: 99214 ==

== ENCOUNTER → 2021-10-21 10:23 | Outpatient (BNVA) | payer MEDICAID, SELFPAY | PROVIDERS: PCP Family Medicine Adult Medicine; Visit Provider Obstetrics & Gynecology | DX: O99.519 Diseases of the respiratory system complicating pregnancy, unspecified trimester (principal); Z12.4 Encounter for screening for malignant neoplasm of cervix; J45.909 Unspecified asthma, uncomplicated | CPT/HCPCS: 80307; 84315; 85027; 86592; 86762; 86803; 86850; 86900; 87086; 87340; 87491; 87591; 87806; 88175 ==

== ENCOUNTER → 2021-12-09 10:06 | Outpatient (BNVA) | payer MEDICAID, SELFPAY | PROVIDERS: PCP Family Medicine Adult Medicine; Visit Provider Obstetrics & Gynecology | DX: Z36.9 Encounter for antenatal screening, unspecified (principal) | CPT/HCPCS: 76805 ==

== ENCOUNTER → 2022-01-06 14:00 | Outpatient (BNVA) | payer MEDICAID, SELFPAY | PROVIDERS: PCP Family Medicine Adult Medicine; Visit Provider Obstetrics & Gynecology | DX: O26.892 Other specified pregnancy related conditions, second trimester (principal); Z3A.23 23 weeks gestation of pregnancy; J02.9 Acute pharyngitis, unspecified | CPT/HCPCS: 76816; 87071; 87880 ==

== ENCOUNTER 2022-01-08 23:13 | Emergency (ER) | payer MEDICAID, SELFPAY ==
--- NOTE | 2022-01-08 23:41 | XRR_ITS ---
PROCEDURE INFORMATION: Exam: XR Chest Exam date and time: 01/09/2022 1:25 AM Age: 26 years old Clinical indication: Pain; Chest pressure; Patient HX: C/O chest discomfort. 23 weeks . ; Additional info: Cp TECHNIQUE: Imaging protocol: Radiologic exam of the chest. Views: 1 view. COMPARISON: CR (CHEST, ) 05/17/2021 6:39 AM FINDINGS: Lungs: There are small lung volumes with minimal accentuation of the pulmonary vascularity. There are no confluent interstitial or airspace opacities. Pleural spaces: There are no pleural effusions or pneumothorax. Heart/Mediastinum: The heart size is normal. The mediastinal contour is normal. The trachea is in the midline. Bones/joints: No acute abnormalities. XR/XR chest 1V portable [id number] IMPRESSION: Small lung volumes with minimal accentuation of the pulmonary vascularity. No confluent infiltrates in the lungs.
[2022-01-08 23:54] VITALS: BP 111/65; PULSE 90; RESP 16; TEMP 36.6; O2SAT 99; BMI 41.7
[2022-01-09 01:38] VITALS: BP 123/56; PULSE 99; RESP 16; O2SAT 97
--- NOTE | 2022-01-09 01:43 | ECG_ITS ---
[facility] Test Date: 2022-01-09 Pat Name: Demetra Ybarra Department: Room: Gender: Female Assembler Final: : 1995 Requested By: Jimbo Callaway Order Number: [id number] Marianela MD: Aguilar Calvo M.D. Measurements Intervals Frannie Rate: 93 P: 49 NM: 181 QRS: 15 QRSD: 89 T: 39 QT: 348 QTc: 435 Interpretive Statements SINUS RHYTHM POSSIBLE ANTERIOR MYOCARDIAL INFARCTION , PROBABLY OLD [30 ms Q WAVE IN V3/V4, OR R < 0.2 mV IN V4] No previous ECG available for comparison Electronically Signed On 01-11-2022 19:47:54 PATHOLOGY TECH by Aguilar Calvo M.D. [id number]
--- NOTE | 2022-01-09 01:43 | PC.NURSE ---
FHT Doppler- 140's by BRETT JUAREZ and CHERYL JUAREZ
--- NOTE | 2022-01-09 01:49 | W.ED.GENADLT ---
HPI - General Adult General: Chief complaint: General Medical Stated complaint: rib pain Time Seen by Provider: 01/09/22 01:29 Source: patient Mode of arrival: ambulatory Limitations: no limitations History of Present Illness: 26-year-old female states over the last 2 days she has had cough congestion along with sore throat states been having some bilateral rib pain has been worse with her cough she is currently 23 weeks she denies any abdominal pain denies any vaginal bleeding she denies any shortness of breath or fevers she is in no distress here. Associated symptoms: Reports chest pain; Deny headache(s), nausea, rash or vomiting Review of Systems Const: Denies: fever(s), chills, body aches or change in appetite Eyes: Denies: blurry vision or eye discomfort ENMT: Reports: throat pain Card: Reports: chest pain Resp: Reports: non-productive cough GI: Denies: abdominal pain, nausea, vomiting or diarrhea : Denies: dysuria Musc: Denies: neck pain or back pain Skin/Breast: Denies: rash Neuro: Denies: headache(s) Psych: Denies: depression Brian/Lymph: Denies: easy bruising All/Imm: Denies: urticaria PFSH ED PFSH: Medical History Anxiety She was managed with lexapro at 18 y/o; she stopped this after a few months and feels she is managed without medication. Asthma managed by Olay[facility]a No pertinent past medical history neghx:htn,dm,thyroid,dvt/pe PCP: Dr. Avalos PTSD (post-traumatic stress disorder) Surgical History History of ankle surgery (~2020) Right ankle fracture Family History Denies family history of Colon cancer Ovarian cancer Diabetes Heart disease Hypercholesteremia Breast cancer Hypertension Uterine cancer Thyroid disease Stroke Social History Smoking and tobacco status: never smoked Female Reproductive History: Date of last menstrual period: 07/22/21 Physical Exam Const: COMMON NORMALS: no acute distress, patient oriented x3 and healthy appearing HENMT: COMMON NORMALS: normocephalic and atraumatic HEAD & SCALP: normocephalic and atraumatic Eye: COMMON NORMALS: Equal, round and reactive pupils present and EOMs intact bilaterally PUPIL: Yes Equal, round and reactive pupils present Neck/C-Spine: COMMON NORMALS: full ROM and supple Chest: COMMONS NORMALS: normal inspection of the chest and normal palpation of entire chest wall Resp: COMMON NORMALS: normal respiratory effort, No retractions, No use of accessory muscles and clear to auscultation bilaterally AUSCULTATION: clear to auscultation bilaterally Cardio: COMMON NORMALS: regular rate, regular rhythm and No murmurs present (Cardio) RATE: regular rate RHYTHM: regular rhythm GI: COMMON NORMALS: Normal to inspection, nondistended, normoactive bowel sounds present, Soft to palpation, non-tender and no masses PALPATION: Yes Soft to palpation Extremity: COMMON NORMALS: normal to inspection and full ROM Neuro: COMMON NORMALS: patient oriented x3, moves all extremities and no focal motor deficits Psych: COMMON NORMALS: mental status grossly normal, Normal thought process present and cooperative THOUGHT PROCESS: Normal thought process present Skin: COMMON NORMALS: no rashes or lesions noted and no wounds GENERAL SKIN EXAM: no rashes or lesions noted Course Vital Signs: Vital signs: Vital Signs Temperature 97.9 F 01/08/22 23:54 Pulse Rate 99 01/09/22 01:38 Respiratory Rate 16 01/09/22 01:38 Blood Pressure 123/56 01/09/22 01:38 Pulse Oximetry 97 01/09/22 01:38 Oxygen Delivery Me thod 01/08/22 23:54 [facility] - General Adult Medical Decision Making Patient presents here with cough congestion likely an upper respiratory infection cough likely causing her rib pain x-ray is normal she is well-appearing here she is stable for discharge she is to return if worsening. Lab Data Laboratory Results Influenza Type A Ag negative (Negative) 01/09/22 01:52 Influenza Type B Ag negative (Negative) 01/09/22 01:52 EKG Data EKG 1: I personally reviewed and interpreted this EKG as follows: EKG interpretation date: 01/09/22 EKG interpretation time: 01:48 Interpretation: nsr hr [address] or t wave abnormalities qrs 89 qtc 399 Discharge Plan Discharge Patient Disposition: Home Clinical Impression: Upper respiratory infection Condition: Stable Prescriptions: No Action diphenhydramine HCl [Allergy Relief(diphenhydramin)] 25 mg tablet 25 mg PO Q6H PRN ipratropium-albuterol 0.5 mg-3 mg(2.5 mg base)/3 mL solution for nebulization 3 ml inhalation Q4H PRN (Reason: wheezing) Qty: 180 0RF prenat.vits,son,[id number] Tablet 1 tab PO DAILY montelukast [Singulair] 10 mg tablet 10 mg PO DAILY Qty: 30 3RF Hold Instructions: Doctor's Order budesonide-formoterol [Symbicort] 80-4.5 mcg/actuation HFA aerosol inhaler 1 inh inhalation .Up to 8 times a day PRN (Reason: shortness of breath) 30 Days Qty: 10.2 4RF (DME) Nebulizer & supplies See Rx Instructions .Route .MEDSUPPLY Qty: 1 0RF Rx Instructions: As directed cetirizine 10 mg tablet 10 mg PO DAILY PRN (Reason: allergy symptoms) Qty: 30 5RF albuterol sulfate 90 mcg/actuation HFA aerosol inhaler 2 inh INHALATION Q4H PRN (Reason: shortness of breath or wheezing) Qty: 18 0RF Discharge Orders: Discharge ED (Routine); Ordered 01/09/22 Ordered By: Jimbo Callaway Referrals: Danish Avalos MD [Primary Care Provider] - 1-3 days Discharge Diet: Advance as tolerated Discharge Activity: Resume usual activity Patient Instructions: Upper Respiratory Infection (ED) Coding Level of Care Code ED Emergency Medical Tech for Chg Fwd Exam Comprehensive
[2022-01-09 02:00] VITALS: BP 127/69; PULSE 97; RESP 16; O2SAT 97
[2022-01-09 02:12] LABS: Influenza A by IFA negative (Negative); Influenza B by IFA negative (Negative)
== END 2022-01-09 02:23 | disposition home or self-care (01) ==
PROVIDERS: Emergency Provider Emergency Medicine; PCP Family Medicine Adult Medicine
DX: O99.512 Diseases of the respiratory system complicating pregnancy, second trimester (principal); J06.9 Acute upper respiratory infection, unspecified; Z3A.23 23 weeks gestation of pregnancy
CPT/HCPCS: 71045; 87804; 93005; 99284

== ENCOUNTER → 2022-01-15 09:00 | Outpatient (BNVA) | payer MEDICAID, SELFPAY | PROVIDERS: PCP Family Medicine Adult Medicine; Visit Provider Obstetrics & Gynecology | DX: Z34.90 Encounter for supervision of normal pregnancy, unspecified, unspecified trimester (principal) | CPT/HCPCS: 81000; 82950 ==

== ENCOUNTER 2022-01-23 08:37 | Outpatient (CLI) | payer MEDICAID, SELFPAY ==
[2022-01-23 09:25] LABS: Glucose Fasting Gestational 89 mg/dL (65-115)
[2022-01-23 11:13] LABS: Glucose 1 Hour 185 mg/dL
[2022-01-23 11:28] LABS: Glucose 2 Hour 139 mg/dL
[2022-01-23 12:36] LABS: Glucose 3 Hour 96 mg/dL
== END 2022-01-23 08:38 | disposition home or self-care (01) ==
LOC: LAB 08:40
PROVIDERS: PCP Family Medicine Adult Medicine; Visit Provider Obstetrics & Gynecology
DX: Z34.91 Encounter for supervision of normal pregnancy, unspecified, first trimester (principal)
CPT/HCPCS: 36415; 82951; 82952

== ENCOUNTER → 2022-02-06 11:04 | Outpatient (BNVA) | payer MEDICAID, SELFPAY | PROVIDERS: PCP Family Medicine Adult Medicine; Visit Provider Obstetrics & Gynecology | DX: Z34.92 Encounter for supervision of normal pregnancy, unspecified, second trimester (principal) | CPT/HCPCS: 76816 ==

== ENCOUNTER → 2022-02-10 07:28 | Outpatient (BNVA) | payer MEDICAID, SELFPAY | PROVIDERS: PCP Family Medicine Adult Medicine; Visit Provider Nurse Practitioner Women's Health | DX: Z34.90 Encounter for supervision of normal pregnancy, unspecified, unspecified trimester (principal); R31.9 Hematuria, unspecified | CPT/HCPCS: 84315; 85025; 86850; 87086 ==

== ENCOUNTER 2022-02-13 10:43 | Outpatient (CLI) | payer MEDICAID, SELFPAY ==
[2022-02-13 10:50] VITALS: TEMP 35.8
[2022-02-13 10:51] VITALS: BP 137/82; PULSE 106
[2022-02-13 10:55] VITALS: BMI 43.0
[2022-02-13 11:06] VITALS: BP 129/59; PULSE 86
== END 2022-02-13 11:25 | disposition home or self-care (01) ==
LOC: OPOB 10:43 → OBGYN 10:44
PROVIDERS: PCP Family Medicine Adult Medicine; Visit Provider Obstetrics & Gynecology
DX: O36.8190 Decreased fetal movements, unspecified trimester, not applicable or unspecified (principal); Z3A.00 Weeks of gestation of pregnancy not specified
CPT/HCPCS: 59025; 99211

== ENCOUNTER → 2022-02-20 11:30 | Outpatient (BNVA) | payer MEDICAID, SELFPAY | PROVIDERS: PCP Family Medicine Adult Medicine; Visit Provider Obstetrics & Gynecology | DX: O99.519 Diseases of the respiratory system complicating pregnancy, unspecified trimester (principal); J45.909 Unspecified asthma, uncomplicated; O99.210 Obesity complicating pregnancy, unspecified trimester | CPT/HCPCS: 84315; 87086 ==

== ENCOUNTER → 2022-03-06 11:40 | Outpatient (BNVA) | payer MEDICAID, SELFPAY | PROVIDERS: PCP Family Medicine Adult Medicine; Visit Provider Obstetrics & Gynecology | DX: Z34.90 Encounter for supervision of normal pregnancy, unspecified, unspecified trimester (principal) | CPT/HCPCS: 81000 ==

== ENCOUNTER → 2022-03-17 15:18 | Outpatient (BNVA) | payer MEDICAID, SELFPAY | PROVIDERS: PCP Family Medicine Adult Medicine; Visit Provider Obstetrics & Gynecology | DX: O26.843 Uterine size-date discrepancy, third trimester (principal); Z3A.34 34 weeks gestation of pregnancy | CPT/HCPCS: 76816 ==

== ENCOUNTER → 2022-04-03 07:50 | Outpatient (BNVA) | payer MEDICAID, SELFPAY | PROVIDERS: PCP Family Medicine Adult Medicine; Visit Provider Obstetrics & Gynecology | DX: Z34.93 Encounter for supervision of normal pregnancy, unspecified, third trimester (principal); Z3A.36 36 weeks gestation of pregnancy | CPT/HCPCS: 76816; 84315; 87086 ==

== ENCOUNTER 2022-04-07 18:45 | Outpatient (CLI) | payer MEDICAID, SELFPAY ==
[2022-04-07 19:13] VITALS: BMI 43.7
[2022-04-07 19:16] VITALS: BP 138/85; PULSE 110
[2022-04-07 19:19] VITALS: RESP 16
[2022-04-07 19:53] VITALS: TEMP 36
[2022-04-07 19:55] LABS: Nitrazine Paper, PH Negative
[2022-04-07 20:16] LABS: Urine Appearance Clear (CLEAR); Urine Color Amber (Yellow); pH Urine 6 (5-7)
[2022-04-07 20:17] LABS: Blood Urine Neg (Negative); Glucose Urine UA Norm (Normal); Ketones Urine 1+ (Negative); Leukocyte Esterase Urine Trace (Negative); Nitrate Urine Negative (Negative); Protein Urine 1+ (Negative); Urobilinogen Urine Norm (Negative)
[2022-04-07 20:18] LABS: Bilirubin Urine 1+ (Negative)
[2022-04-07 20:23] LABS: Bacteria Urine 2+ /hpf; Squamous Epithelial Cell Urine 40-55 /hpf (0-5)
== END 2022-04-07 20:48 | disposition home or self-care (01) ==
LOC: OPOB 18:47 → OBGYN 18:48
PROVIDERS: Obstetrics & Gynecology; PCP Family Medicine Adult Medicine; Visit Provider Obstetrics & Gynecology
DX: O26.899 Other specified pregnancy related conditions, unspecified trimester (principal); Z3A.00 Weeks of gestation of pregnancy not specified; M54.9 Dorsalgia, unspecified; R10.9 Unspecified abdominal pain
CPT/HCPCS: 59025; 81001; 83986; 99211

== ENCOUNTER 2022-04-10 11:10 | Outpatient (CLI) | payer MEDICAID, SELFPAY | END 2022-04-10 11:11 | disposition home or self-care (01) | PROVIDERS: PCP Family Medicine Adult Medicine; Visit Provider Nurse Practitioner Women's Health | DX: O16.9 Unspecified maternal hypertension, unspecified trimester (principal); O36.63X0 Maternal care for excessive fetal growth, third trimester, not applicable or unspecified; O99.210 Obesity complicating pregnancy, unspecified trimester; E66.9 Obesity, unspecified; O99.519 Diseases of the respiratory system complicating pregnancy, unspecified trimester; J45.50 Severe persistent asthma, uncomplicated; O26.849 Uterine size-date discrepancy, unspecified trimester; Z3A.37 37 weeks gestation of pregnancy | CPT/HCPCS: 84315; 87081 ==

== ENCOUNTER 2022-04-12 08:25 | Outpatient (CLI) | payer MEDICAID, SELFPAY ==
[2022-04-12 09:29] LABS: Total Volume, Urine 2075 mL; Urine Total Protein 8.7 mg/dL (0-150); Urine Total Protein 24 Hour 180.5 mg/24hr (0-150)
== END 2022-04-12 08:26 | disposition home or self-care (01) ==
PROVIDERS: PCP Family Medicine Adult Medicine; Visit Provider Nurse Practitioner Women's Health
DX: O16.9 Unspecified maternal hypertension, unspecified trimester (principal); Z3A.00 Weeks of gestation of pregnancy not specified
CPT/HCPCS: 84156

== ENCOUNTER → 2022-04-13 09:45 | Outpatient (BNVA) | payer MEDICAID, SELFPAY | PROVIDERS: PCP Family Medicine Adult Medicine; Visit Provider Nurse Practitioner Women's Health | DX: Z34.90 Encounter for supervision of normal pregnancy, unspecified, unspecified trimester (principal) | CPT/HCPCS: 80053; 84550; 85025 ==

== ENCOUNTER → 2022-04-17 07:49 | Outpatient (BNVA) | payer MEDICAID, SELFPAY | PROVIDERS: PCP Family Medicine Adult Medicine; Visit Provider Obstetrics & Gynecology | DX: Z34.90 Encounter for supervision of normal pregnancy, unspecified, unspecified trimester (principal); R82.90 Unspecified abnormal findings in urine | CPT/HCPCS: 81000 ==

== ENCOUNTER → 2022-04-30 11:10 | Outpatient (BNVA) | payer MEDICAID, SELFPAY | PROVIDERS: PCP Family Medicine Adult Medicine; Visit Provider Obstetrics & Gynecology | DX: O36.60X0 Maternal care for excessive fetal growth, unspecified trimester, not applicable or unspecified (principal); Z3A.40 40 weeks gestation of pregnancy | CPT/HCPCS: 76816; 76819 ==

== ENCOUNTER 2022-05-01 10:10 | Outpatient (CLI) | payer MEDICAID, SELFPAY ==
[2022-05-01 10:10] VITALS: BMI 44.6
--- NOTE | 2022-05-01 10:23 | US_ITS ---
WS: [id number] ULTRASOUND OB LIMITED TECHNIQUE: Limited ultrasound examination of the fetus. CLINICAL INFORMATION: Non reactive NST in office COMPARISON: April 30, 2022 FINDINGS: Single interuterine gestation. presentation is vertex Placental location is anterior. heart rate 122 BPM. Largest single vertical pocket 5.3 cm Biophysical profile 8 out of 8. breathin movement: 2 tone: 2 Amniotic fluid: 2 US/US OB BPP wo NST [id number] IMPRESSION: Normal biophysical profile 8 out of 8
== END 2022-05-01 12:22 | disposition home or self-care (01) ==
LOC: OPOB 10:20 → OBGYN 10:22
PROVIDERS: PCP Family Medicine Adult Medicine; Visit Provider Obstetrics & Gynecology
DX: O26.899 Other specified pregnancy related conditions, unspecified trimester (principal); Z3A.00 Weeks of gestation of pregnancy not specified
CPT/HCPCS: 76819; 84315; 99211

== ENCOUNTER 2022-05-03 03:05 | Inpatient (IN) | payer MEDICAID, SELFPAY ==
[2022-05-02] VITALS (15 sets, daily range): BP systolic 113–147; BP diastolic 54–86; PULSE 72–100; RESP 16; TEMP 36.1; BMI 44.6
[2022-05-02 17:16] LABS: Basophils % 0.3 %; Eosinophils # 0.2 10^3/uL (0.0-0.8); Eosinophils % 1.3 %; Hematocrit 37.2 % (37.0-47.0); Hemoglobin 12.4 g/dL (11.5-15.3); Lymphocytes # 2.6 10^3/uL (0.8-4.8); Lymphocytes % 19.8 %; Mean Corpuscular HGB Conc 33.3 g/dL (30.0-36.0); Mean Corpuscular Hemoglobin 27.4 pg (28.0-34.0); Mean Corpuscular Volume 82.3 fl (81-99); Mean Platelet Volume 10.3 fL (7.4-10.4); Monocytes # 0.7 10^3/uL (0.2-0.9); Neutrophils # 9.49 10^3/uL (1.8-7.7); Neutrophils % 72.7 %; Nucleated Red Blood Cells % 0 %; Platelet Count 368 10^3/cmm (130-400); Red Blood Count 4.52 10^6/uL (4.1-5.3); Red Cell Distribution Width 13.4 % (12.1-15.1); White Blood Count 13.1 10^3/uL (4.0-10.0)
[2022-05-02] MEDS: miSOPROStol 100 mcg tablet 25 MCG VAGINAL (17:30)
[2022-05-02] MEDS: dextrose 5%-lactated ringers 1,000 ML 125 ML IV (21:54)
[2022-05-03] VITALS (138 sets, daily range): BP systolic 107–168; BP diastolic 55–88; PULSE 70–136; RESP 18; TEMP 35.9–38.6; O2SAT 96–99
--- NOTE | 2022-05-03 00:10 | P.HP_ITS ---
Providers/Chief Complaint Admitting Physician: Anuja KUMAR Primary FARMER AND GRAZIER: Dr. Bob Primary Care Provider: Danish Avalos MD Chief Complaint: induction HPI FARMER AND GRAZIER History of Present Illness Demetra Ybarra is a 26 year old female G1, P0 at 39.3 weeks gestation with an KEVIN of 05/06/2022 admitted to labor and delivery for scheduled induction. Patient's history with elevated blood pressure at 36 weeks of 128/90 PIH blood work?uric acid 5.5, AST ALT normal, 24-hour urine protein 180.5. Patient has history of PTSD has been managed during without medication. lab?blood type O-, antibody screen negative, rubella immune, hepatitis B nonreactive hep C nonreactive, RPR nonreactive, HIV nonreactive, urine drug screen negative. GC chlamydia negative. Quad screen declined. RhoGAM administered 02/10/2022. GBS negative. 50 g abnormal at 185, 3-hour GTT negative. Initial pelvic exam by nursing staff cervix 1 cm / 40%/-3 vertex EFM?category 1 Cytotec 25 mcg placed vaginally at 1700 for cervical ripening. Patient seen and examined, nursing staff reports contractions every 2 to 6 minutes and cervix being unchanged. Patient has been given a rest from the monitors. Pelvic exam?cervix 1 cm / 60%/-2 vertex presentation AROM?clear fluid noted EFM?category 1 with contractions every 1 to 3 minutes. Discussed with patient if after rupture of membranes contractions does not appear to be adequate with cervical change may need induction with Pitocin. Risk and benefits reviewed patient understands. Present Details : 1 Para: 0 Labs Rubella: Immune RPR: Negative GBS: Negative Review of Systems Narrative: movement: no Const: Denies: fever(s) or chills Card: Denies: chest pain, palpitations, irregular heart rhythm or syncope Resp: Denies: dyspnea GI: Denies: abdominal pain, nausea or vomiting : Denies: flank pain, dysuria, urinary frequency or urinary urgency Musc: Denies: back pain or extremity swelling Skin/Breast: Denies: rash, pruritus, breast pain, nipple discharge or breast mass Neuro: Denies: headache(s), difficulty walking, dizziness or restless legs Psych: Denies: anxiety, depression or mood swings Endo: Denies: polyuria, tired all the time, cold intolerance or heat intolerance Brian/Lymph: Denies: easy bruising, easy bleeding, petechiae or purpura All/Imm: Denies: urticaria Medications/Allergies Home Medications Medication Instructions Recorded Confirmed Last Taken Type prenat.vits,son,kbt-gjka-hzkfl 1 tab PO DAILY 09/09/21 05/02/22 02/12/22 20:30 History Allergies Allergy/AdvReac Type Severity Reaction Status Date / Time No Known Allergies Allergy Verified 05/01/22 09:33 PFSH FARMER AND GRAZIER PFSH: Medical History Anxiety She was managed with lexapro at 18 y/o; she stopped this after a few months and feels she is managed without medication. Asthma managed by [facility] No pertinent past medical history neghx:htn,dm,thyroid,dvt/pe PCP: Dr. Avalos PTSD (post-traumatic stress disorder) Surgical History History of ankle surgery (~2020) Right ankle fracture Family History Denies family history of Colon cancer Ovarian cancer Diabetes Heart disease Hypercholesteremia Breast cancer Hypertension Uterine cancer Thyroid disease Stroke Social History Smoking and tobacco status: never smoked Other Female Reproductive History: Hx Age of Menarche: 14 Duration of menses: 3-5 days Date of Last Menstrual Period: 07/22/21 Cycle Length: 30 days Menstrual flow: normal/abnormal: normal Sexual History: Are you sexually active?: Yes How old were you when you first had sex?: 18 How long have you been with your current partner?: since 2016 Hx Sexually Transmitted Diseases: No Have you ever tested positive for HIV?: Yes Contraception: Contraception History Comment: History of Nexplanon [id number] Last injection September 2020 History History History 1 Term 0 0 Miscarriages/Ectopic 0 Living Children 0 Care KEVIN Calculator Estimated Delivery Date Method Current WG Current Estimate 05/06/22 Ultrasound #1 39w 4d Other Estimates 04/28/22 LMP (Certain) 40w 5d 04/29/22 Ultrasound #2 40w 4d 04/27/22 Manual 40w 6d on 01/06/2022 Specific Issues/Plans * Obesity * Depression * Asthma * O NEGATIVE; recvd rhogam 02/10/21 * Size greater than dates---- 86-92%tile at 33 weeks Vitals/I&O/Wt Last Vital Signs Temp 97.0 F L 05/02/22 19:31 Pulse 75 05/03/22 00:07 Resp 16 05/02/22 16:29 BP 132/85 05/03/22 00:07 O2 Del Method 05/02/22 21:45 Weight last 48 hrs Weight 117.934 kg Physical Exam Const: COMMON NORMALS: no acute distress, patient oriented x3, no limitations, healthy appearing, alert and well nourished HENMT: COMMON NORMALS: normocephalic Resp: COMMON NORMALS: normal respiratory effort and clear to auscultation bilaterally Cardio: COMMON NORMALS: regular rate and regular rhythm Back/Pelvis: OTHER: PE- 1cm/60%/-2 vtx AROM clear fluid Extremity: COMMON NORMALS: normal to inspection, full ROM, no clubbing, cyanosis or edema and no calf tenderness Neuro: COMMON NORMALS: patient oriented x3, CN's II-XII intact bilaterally and moves all extremities Data 05/02/22 16:45 A&P Assessment and plan (1) Supervision of normal : A. 26yo female at 39.3 wk IUP GBS neg. Obesiy Hx of Asthma Hx of PTSD Plan P. Admit to LD for Induction of Labor Cytotec for Cx Ripening Attestations Medical Necessity Statement*: Admission for IOL. Coding Level of Care Code Acute Code for Chg Fwd Diagnoses Supervision of normal Z34.90
[2022-05-03] MEDS: lactated ringers 1,000 ML 999 ML IV ×2 (02:15→03:18)
--- NOTE | 2022-05-03 04:02 | P.ANESASSM_ITS ---
Pre-Anesthetic Assessment Height/Weight: Height 1.63 m Weight 117.934 kg Temp Pulse Resp BP Pulse Ox O2 Del Method 96.6 F L 82 16 124/59 99 05/03/22 03:59 05/03/22 03:59 05/02/22 16:29 05/03/22 03:56 05/03/22 03:59 05/02/22 21:45 Preop Diagnosis: Fracture right medial and lateral malleolus Social No alcohol and No tobacco Exam alert, oriented x 3, clear to auscultation bilaterally and regular rate & rhythm Airway Submandibular: within normal limits Cervical ROM: within normal limits Mallampati: Class II History/ROS No significant history except as noted and No significant complaints Pulmonary Asthma CV/HEM None reported None reported Hepatic None reported GI None reported Metabolic Morbid Obesity [facility] [place] Lower Back Pain Neuropsych None reported Anesthetic Plan ASA status: 2 Anesthesia: Anesthesia Evaluation, Eval. for regional block and Regional (specify below) Risk of > 500 ml blood loss (7ml/kg in children): Yes, adequate IV access and fluids planned Medications/Allergies Home Medications Medication Instructions Recorded Confirmed Last Taken Type prenat.vits,son,mcs-vyes-fdntq 1 tab PO DAILY 09/09/21 05/02/22 02/12/22 20:30 History Allergies Allergy/AdvReac Type Severity Reaction Status Date / Time No Known Allergies Allergy Verified 05/01/22 09:33 Current Medications Generic Name Dose Route Start Last Admin Trade Name Freq PRN Reason Stop Dose Admin Dextrose/Lactated Ringer's 1,000 mls @ 125 mls/hr 05/02/22 16:30 05/03/22 02:15 Dextrose 5%-Lactated Ringers IV 0 mls/hr .Q8H FABIO Infusion Ropivacaine 200 mg in 100 mls @ 13 mls/hr 05/03/22 02:45 05/03/22 03:48 Naropin Premix EPIDURAL 13 mls/hr .Q7H42M FABIO Administration Lactated Ringer's 1,000 mls @ 999 mls/hr 05/03/22 02:15 05/03/22 03:18 Lactated Ringers IV 999 mls/hr .Q1H1M PRN Administration See label comments Misoprostol 25 mcg 05/02/22 17:05 05/02/22 17:30 Misoprostol 100 Mcg Tablet VAGINAL 25 mcg Q4H PRN Administration cervical ripening PFSH Anesthesia Medical History Anxiety She was managed with lexapro at 18 y/o; she stopped this after a few months and feels she is managed without medication. Asthma managed by [facility] No pertinent past medical history neghx:htn,dm,thyroid,dvt/pe PCP: Dr. Avalos PTSD (post-traumatic stress disorder) Surgical History History of ankle surgery (~2020) Right ankle fracture Family History Denies family history of Colon cancer Ovarian cancer Diabetes Heart disease Hypercholesteremia Breast cancer Hypertension Uterine cancer Thyroid disease Stroke Social History Smoking and tobacco status: never smoked Female Reproductive History : 1 Data Anesthesia 05/02/22 16:45 Short CBC 05/02/22 Range/Units 16:45 WBC 13.1 H (4.0-10.0) 10^3/uL Hgb 12.4 (11.5-15.3) g/dL Hct 37.2 (37.0-47.0) % MCV 82.3 (81-99) fl Plt Count 368 (130-400) 10^3/cmm Neut % (Auto) 72.7 % Neut # (Auto) 9.49 H (1.8-7.7) 10^3/uL Cardiac Studies: No Data to Display Anesthesia Procedures Date of Procedure 05/03/22 Epidural Time Out Performed: Yes Consents Signed: Procedure Consent Consent: requested by attending/covering physician, from patient, risks and benefits reviewed and patient agrees to proceed Lumbar Level: L3-L4 Epidural position: sitting Epidural procedure: sterile prep of area, 1% lidocaine to numb the area, negative for paresthesia passed, test dose given, 1.5% xylocaine 1:200k epi, 0.2% Ropivacaine bolus ml (10), placed PCEA, no systemic response, sterile dressing applied, L.U.D. no apparent complications and 0.2% Ropiavacaine @ mls/hr (13)
[2022-05-03] MEDS: oxytocin 30 UNIT/500 ML BAG IV (08:32)
[2022-05-03] MEDS: ondansetron 2 mg/ML SDV 2 mL 4 MG IVP ×2 (08:32→16:50)
[2022-05-03] MEDS: dextrose 5%-lactated ringers 1,000 ML 125 ML IV ×2 (09:33→17:35)
--- NOTE | 2022-05-03 10:33 | PM.OBGYPN ---
FACILITY REHAB DIRECTOR Subjective Subjective: Interval history: 26yo female at 39.4 wk IUP seen and examined. Contractions spaced out thru hs and pt started on Pitocin this am. Currently on 7mu with contractions 2-5 to irregular. Cervix 3-4cm/80%/-2 vtx with EFM reassuring. Discussed labor and importance of progression. Labor: Station: -2 Amniotic Membrane Status: Ruptured Monitor Mode: External Contraction Pattern: Irregular Vitals/I&O/Wt Last Vital Signs Temp 96.6 F L 05/03/22 03:59 Pulse 105 H 05/03/22 10:23 Resp 16 05/02/22 16:29 BP 136/75 05/03/22 10:23 Pulse Ox 96 05/03/22 06:39 O2 Del Method 05/03/22 03:52 05/02/22 05/03/22 05/03/22 22:59 06:59 14:59 Intake Total 2543.75 / 2543.75 556.25 / 556.25 Balance 2543.75 / 2543.75 556.25 / 556.25 Weight last 48 hrs Weight 117.934 kg Physical Exam Urinary Catheter Management: Cordero Latex: Cath Placed During This Visit: yes Reason for Continuing Indwelling Catheter: Other Urinary Catheter Date of Insertion: 05/03/22 Urinary Catheter Time of Insertion: 04:23 Data 05/02/22 16:45 A&P Assessment and plan (1) Supervision of normal : A. 39.4 wk IUP GBS neg P. Continue Induction with Pitocin. Attestations Medical Necessity Statement*: Management of Induction of Labor. Coding Level of Care Code Acute Code for Chg Fwd Diagnoses Supervision of normal Z34.90
--- NOTE | 2022-05-03 12:28 | P.PN_ITS ---
INTERNET PROGRAMMER Subjective Subjective: Interval history: 26yo female without complaints. EFM with variables noted with contractions, Cx 4-5cm/80%/-2 vtx, contractions q 3 . Discussed progression with pt and partner at bedside. Labor: Station: -2 Amniotic Membrane Status: Ruptured Monitor Mode: External Contraction Pattern: Irregular Vitals/I&O/Wt Last Vital Signs Temp 96.6 F L 05/03/22 03:59 Pulse 97 05/03/22 12:22 Resp 16 05/02/22 16:29 BP 139/72 05/03/22 12:22 Pulse Ox 96 05/03/22 06:39 O2 Del Method 05/03/22 03:52 05/02/22 05/03/22 05/03/22 22:59 06:59 14:59 Intake Total 2543.75 / 2543.75 556.25 / 556.25 Balance 2543.75 / 2543.75 556.25 / 556.25 Weight last 48 hrs Weight 117.934 kg Physical Exam Urinary Catheter Management: Cordero Latex: Cath Placed During This Visit: yes Reason for Continuing Indwelling Catheter: Other Urinary Catheter Date of Insertion: 05/03/22 Urinary Catheter Time of Insertion: 04:23 Data 05/02/22 16:45 A&P Assessment and plan (1) Supervision of normal : A. 39.4 wk IUP GBS neg Obesity P. Continue Induction. Attestations Medical Necessity Statement*: Labor management. Coding Level of Care Code Acute Code for Chg Fwd Diagnoses Supervision of normal Z34.90
--- NOTE | 2022-05-03 14:32 | P.PN_ITS ---
CLOUD ENGAGEMENT PARTNER Subjective Subjective: Interval history: Pt wtihout complaints, feels some vaginal pressure, good FM. EFM-Reassuring with Variables. Contractions q 2-5 . Cx- 7cm/80%/0 vtx. Progressed reviewed. Pt encouraged. Labor: Station: 0 Amniotic Membrane Status: Ruptured Monitor Mode: Palpation Contraction Pattern: Regular Status: Category II Vitals/I&O/Wt Last Vital Signs Temp 98.1 F 05/03/22 13:21 Pulse 90 05/03/22 14:23 Resp 16 05/02/22 16:29 BP 118/58 05/03/22 14:23 Pulse Ox 96 05/03/22 06:39 O2 Del Method 05/03/22 03:52 05/02/22 05/03/22 05/03/22 22:59 06:59 14:59 Intake Total 2543.75 / 2543.75 573.25 / 573.25 Output Total 400 / 400 Balance 2543.75 / 2543.75 173.25 / 173.25 Weight last 48 hrs Weight 117.934 kg Physical Exam Urinary Catheter Management: Cordero Latex: Cath Placed During This Visit: yes Reason for Continuing Indwelling Catheter: Other Urinary Catheter Date of Insertion: 05/03/22 Urinary Catheter Time of Insertion: 04:23 Data 05/02/22 16:45 A&P Assessment and plan (1) Supervision of normal : A. 39.4 wk IUP GBS neg Obesity P. Continue Pitocin Induction. Attestations Medical Necessity Statement*: Labor management Coding Level of Care Code Acute Code for Chg Fwd Diagnoses Supervision of normal Z34.90
[2022-05-03] MEDS: ampicillin 2,000 MG in sodium chloride 0.9% (plus) 50 ML 100 MG IV (18:23)
--- NOTE | 2022-05-03 18:57 | P.PN_ITS ---
RETURNS PROCESSOR Subjective Subjective: Interval history: Pt doing well, no complaints. Last examine Cx was 8cm. Pt now with low adiel Temp. 101.5 EFM- Tachy at 160s-170s. Discussed with Pt increased Temp and baby's HR indicate intrauterine infection, and if not nearly complete will advise to proceed with c/s delivery. Baby won't tolerate increased HR for prolong time. Pt understands Treated with Ampicillin/Gentamycin. Cx 8-9cm/80%/0, attempted to reduce Cx- unsuccessfully. No descent of vtx with pushing. Will prepare for section.. Labor: Station: -2 Amniotic Membrane Status: Ruptured Monitor Mode: External Contraction Pattern: Irregular Status: Category II Vitals/I&O/Wt Last Vital Signs Temp 101.5 F H 05/03/22 17:59 Pulse 121 H 05/03/22 18:42 Resp 16 05/02/22 16:29 BP 168/79 05/03/22 18:42 Pulse Ox 96 05/03/22 06:39 O2 Del Method 05/03/22 03:52 05/03/22 05/03/22 05/03/22 06:59 14:59 22:59 Intake Total 2543.75 / 2543.75 573.25 / 573.25 1166.183 / 1739.433 Output Total 400 / 400 Balance 2543.75 / 2543.75 173.25 / 173.25 1166.183 / 1339.433 Weight last 48 hrs Weight 117.934 kg Physical Exam Urinary Catheter Management: Cordero Latex: Cath Placed During This Visit: yes Reason for Continuing Indwelling Catheter: Other Urinary Catheter Date of Insertion: 05/03/22 Urinary Catheter Time of Insertion: 04: Data 05/02/22 16:45 A&P Assessment and plan (1) Supervision of normal : A. 39.4 wk IUP Maternal Fever Chorioamnitis P. Prepare for section. Attestations Medical Necessity Statement*: Labor Management Coding Level of Care Code Acute Code for Chg Fwd Diagnoses Supervision of normal Z34.90
[2022-05-03] MEDS: metoclopramide 5 mg/mL SDV 2 mL 10 MG IVP (19:29)
[2022-05-03] MEDS: famotidine 20 mg/2 mL INJ IVP (19:30)
[2022-05-03] MEDS: citric acid-sodium citrate 30 mL UDC PO (19:32)
--- NOTE | 2022-05-03 19:39 | P.ANESUD_ITS ---
Pre-Anesthetic Update Pre-Anesthetic Assessment: Date of Surgery/Procedure: 05/03/22 Preop Clarisse gnosis: Fracture right medial and lateral malleolus Proposed Procedure: Any changes to Pre-Anesthetic Assessment?: No Labs Last 48hrs: Short CBC 05/02/22 Range/Units 16:45 WBC 13.1 H (4.0-10.0) 10^3/ uL Hgb 12.4 (11.5-15.3) g/dL Hct 37.2 (37.0-47.0) % MCV 82.3 (81-99) fl Plt Count 368 (130-400) 10^3/c mm Neut % (Auto) 72.7 % Neut # (Auto) 9.49 H (1.8-7.7) 10^3/u L Vitals: Temperature 101.5 F H 05/03/22 17:59 Pulse Rate 134 H 05/03/22 19:23 Pulse Rhythm 05/03/22 08:00 Pulse Strength 3+ Normal 05/03/22 08:00 Respiratory Rate 16 05/02/22 16:29 Respiratory Effort Non-Labored 05/03/22 08:00 Respiratory Depth Normal 05/03/22 08:00 Respiratory Patter n 05/03/22 08:00 Blood Pressure 131/70 05/03/22 19:23 Pulse Oximetry 96 05/03/22 06:39 Oxygen Delivery Me thod 05/03/22 03:52 Exam: Pre-Anes Outpt Exam: alert, oriented x 3, clear to auscultation bilaterally and regular rate & rhythm Cardiac Studies: No Data to Display
--- NOTE | 2022-05-03 20:57 | P.PCNOB_ITS ---
Delivery Note: Date of delivery: May 03, 2022 Pre-delivery diagnoses: 39.4 wk IUP Tachycardia Maternal Fever Chorioamnitis Post-delivery diagnoses: same Meconium stained fluid Procedure: Primary LTCS with delivery of Viable Male with Vacuum Op report anesthesia: Epidural Delivering Physician: Anuja KUMAR Estimated blood loss (mL): 700 Findings: Viable male Meconium fluid Pre-Delivery Course: see progress notes Delivery: 26yo female delivered by LTCS after Cervical Ripening and YAHIR. Pt progressed to 8-9cm and experienced Tachycaria and increase Temp to 101. Pt was treated with IV antibiotics, and reduction of Cervix was attempted unsuccessfully with several pushes . Pt was advised to proceed with c/section delivery because of the babyies increased HR. Consents signed and surgery crew assembled. Pt prepared and transported to surgery suite, epidural redosed and abd prepped and draped in standard fashion. Skin testing performed and anesthesia level noted to be adequate. A skin incision was made with a knife and extended to the fascia. Multiple bleeding sites were cauterized with the Bovie. The fascia was incised and the incision lateralized with Epps scissors. The fascia was dissected off the peritoneum, and the peritoneum entered bluntly. A bladder flap was created with Metzenbaums and pickups and displaced with the bladder blade. A low transverse uterine incision was made with a knife and extended laterally. The baby's vertex was elevated from the pelvis to the incision, and using a vacuum was delivered atraumatically. The umbilical cord was clamped and cut and baby placed on the warmer for nursing evaluation. Thick meconium fluid was encountered. Cord pH blood was drawn and handed off. The uterus was wiped clean with a moist lap sponge. The uterus was noted to be very large and was unable to be exteriorized. The bladder blade was placed to protect the bladder and the incision was closed with 0 Vicryl in a running interlocking stitch. The left corner was noted to be bleeding, therefore the corner was oversewn with 0 Vicryl with good hemostasis. The posterior cul-de-sac and sidewalls were wiped clean with a moist lap sponge. The incision evaluated and noted to be hemostatically intact. Lap sponge was removed from the pelvis. Sponge and instrument count correct. The rectus muscle and peritoneum was closed with 2-0 Vicryl. The subcu fat approximated with 2-0 Vicryl and the skin closed with 0 Vicryl. The incision cleansed and a pressure dressing applied. A second needle instrument and sponge count was correct. The uterus and vagina were cleared of clots. Mother and are both in stable and satisfactory condition. Anesthesia?epidural EBL?700 mils complication?none 1/9 delivery 8 mls of meconium Weight 7 pounds 9 viable male Cord pH?pending Post-Delivery Status: Stable and satisfactory History History History 1 Term 1 0 Miscarriages/Ectopic 0 Living Children 1 Past Pregnancies Del. Date GA/Weeks Outcome Route Wt Inf Gender Labor Lgth Comp. Anesth esia Location 05/03/22 39 live - full term 7.9 kg Male A&P Assessment and plan (1) Supervision of normal : A. 1. 39-week IUP s/p primary low transverse section 2. Failed trial of labor due to chorioamnionitis with maternal fever and tachycardia 3. Meconium stained fluid 4. Maternal obesity 5. History of severe persistent asthma P. care, We will continue IV antibiotics. Coding Level of Care Code Acute Code for Chg Fwd Diagnoses Supervision of normal Z34.90
--- NOTE | 2022-05-03 23:58 | PC.NURSE ---
2 Blue Chix, 1 Blue OR towel and 1 draw sheet weighed. 650 wet weight, 420 dry weight. Total Blood Loss 230ml
[2022-05-04] VITALS (58 sets, daily range): BP systolic 103–142; BP diastolic 53–84; PULSE 96–125; RESP 16–18; TEMP 36.2–37.3; O2SAT 94–100
[2022-05-04] MEDS: miSOPROStol 200 mcg Tablet 800 MCG PR (00:02)
[2022-05-04] MEDS: ampicillin 2,000 MG in sodium chloride 0.9% (plus) 50 ML 100 MG IV ×4 (00:38→19:34)
[2022-05-04 02:01] LABS: Hematocrit 35.4 % (37.0-47.0); Hemoglobin 11.9 g/dL (11.5-15.3); Mean Corpuscular HGB Conc 33.6 g/dL (30.0-36.0); Mean Corpuscular Hemoglobin 28.1 pg (28.0-34.0); Mean Corpuscular Volume 83.7 fl (81-99); Platelet Count 293 10^3/cmm (130-400); Red Blood Count 4.23 10^6/uL (4.1-5.3); Red Cell Distribution Width 13.7 % (12.1-15.1)
[2022-05-04 02:26] LABS: White Blood Count 30.2 10^3/uL (4.0-10.0)
[2022-05-04] MEDS: dextrose 5%-lactated ringers 1,000 ML 125 ML IV (02:50)
--- NOTE | 2022-05-04 08:15 | ANE.PACU2 ---
Inpatient post-anesthesia follow up: Airway intact: Yes Vital signs: Temperature 97.5 F Pulse Rate 115 Respiratory Rate 18 Blood Pressure 124/68 Pulse Oximetry 97 Oxygen Delivery Me thod Room Air Oxygen Flow Rate Fraction of Inspir ed Oxygen Hydration adequate: Yes Nausea and vomiting: No Pain level: 2 Mental status: Baseline
--- NOTE | 2022-05-04 08:27 | P.PN_ITS ---
COATING AND EMBOSSING UNIT OPERATOR Subjective Subjective: Interval history: S/P Primary C/Section pt doing well, no complaints. Pt tolerating regular diet, and ambulating. Reviewed postop expectations. VSS, afebrile Abd- soft, fundus firm, lochia light. Incision C/D/I bandage removed. Ext- +1 edema, Homans sign neg. Labor: Station: -2 Amniotic Membrane Status: Ruptured Monitor Mode: Palpation Contraction Pattern: Regular Status: Category II Post /CS: Patient comments OB post-: no complaints Parachute baby status: doing well Vitals/I&O/Wt Last Vital Signs Temp 97.5 F L 05/04/22 07:35 Pulse 115 H 05/04/22 07:34 Resp 18 05/04/22 03:01 BP 124/68 05/04/22 07:34 Pulse Ox 97 05/04/22 03:08 O2 Del Method 05/03/22 21:30 05/03/22 05/04/22 05/04/22 22:59 06:59 14:59 Intake Total 1218.183 / 0746.030 2102 / 3941.433 Output Total 150 / 550 1700 / 2250 Balance 1068.183 / 1241.433 450 / 1691.433 Weight last 48 hrs Weight 117.934 kg Physical Exam Urinary Catheter Management: Cordero Latex: Cath Placed During This Visit: yes Reason for Continuing Indwelling Catheter: Perioperative Use in Selected Angle geries Urinary Catheter Date of Insertion: 05/03/22 Urinary Catheter Time of Insertion: 04:23 Data 05/04/22 01:40 A&P Assessment and plan (1) Supervision of normal : A. S/P Primary C/S for Tachycardia -(Chorioamnionitis) P. Continue Antibiotics 24 hrs. Attestations Medical Necessity Statement*: Labor management Postop care. Coding Level of Care Code Acute Code for Chg Fwd Diagnoses Supervision of normal Z34.90
[2022-05-04] MEDS: prenatal vitamin Capsule 1 CAP PO (08:48)
[2022-05-04] MEDS: ferrous sulfate EC 325 mg Tablet PO ×2 (08:48→18:11)
[2022-05-04] MEDS: docusate sodium 100 mg Capsule PO ×2 (08:48→18:11)
[2022-05-04] MEDS: HYDROcodone-acetaminophen 5-325 mg Tablet PO ×2 (08:48→19:33)
--- NOTE | 2022-05-04 10:46 | PC.NURSE ---
1015 patient called out as she was going to bathroom. Upon entering there was a trail of blood leading from bed to the toilet. Fundus was assessed. Firm and 1in below umbilicus. Patient voided at this time. Scant bleeding after fundal massage.
[2022-05-04] MEDS: ibuprofen 800 mg tablet PO (21:52)
[2022-05-04] MEDS: lanolin oint 7 gm 1 APPLIC TOPICAL (21:52)
[2022-05-05] VITALS (7 sets, daily range): BP systolic 116–131; BP diastolic 56–76; PULSE 81–105; RESP 16; TEMP 36.4–36.6; O2SAT 95–99
[2022-05-05] MEDS: HYDROcodone-acetaminophen 5-325 mg Tablet PO ×2 (00:08→07:41)
[2022-05-05 04:37] LABS: Basophils # 0.1 10^3/uL (0.0-0.1); Basophils % 0.3 %; Eosinophils # 0.4 10^3/uL (0.0-0.8); Eosinophils % 1.9 %; Hematocrit 27.9 % (37.0-47.0); Hemoglobin 9.2 g/dL (11.5-15.3); Lymphocytes # 2.4 10^3/uL (0.8-4.8); Lymphocytes % 12.3 %; Mean Corpuscular Hemoglobin 27.7 pg (28.0-34.0); Monocytes # 1.2 10^3/uL (0.2-0.9); Neutrophils # 15.45 10^3/uL (1.8-7.7); Neutrophils % 78.1 %; Nucleated Red Blood Cells % 0 %; Platelet Count 257 10^3/cmm (130-400); Red Blood Count 3.32 10^6/uL (4.1-5.3); Red Cell Distribution Width 14.1 % (12.1-15.1); White Blood Count 19.8 10^3/uL (4.0-10.0)
[2022-05-05] MEDS: ibuprofen 800 mg tablet PO (07:40)
[2022-05-05] MEDS: ferrous sulfate EC 325 mg Tablet PO (07:40)
[2022-05-05] MEDS: prenatal vitamin Capsule 1 CAP PO (07:40)
[2022-05-05] MEDS: docusate sodium 100 mg Capsule PO (07:40)
--- NOTE | 2022-05-05 13:19 | P.DS_ITS ---
Discharge Providers SERVICE CENTER COORDINATOR Date of Admission: 05/03/22 03:05 Date of Discharge: 05/05/22 Attending Provider at Admission: Jennyfer Myles DO Attending Provider at Discharge: Jennyfer Myles DO Primary SERVICE CENTER COORDINATOR: Dr. Bob Primary Care Provider: Danish Avalos MD Diagnoses at Discharge Discharge Diagnosis (1) Supervision of normal : Details from hospital stay: 26-year-old female G1, P1 delivered via primary section after cervical ripening(cytotec) and trial of labor with Pitocin. section was performed due to tachycardia and maternal fever with a diagnosis of chorioamnionitis. Maternal temperature has been normal since delivery, patient was treated with ampicillin and gentamicin. Her WBC has decreased from 30-19.8 K, and she exhibits no signs of infection. Baby boy has been transferred to [facility] NICU for positive blood cultures (E. coli) and CSF indicative of viral meningitis. Patient is ambulating, tolerating regular diet, voiding and has had a bowel movement spontaneously. Postop expectations has been reviewed as well as discharge expectations and orders. We have discussed no heavy lifting, pushing or pulling, no sex douching or tampons x6 weeks. Patient is to shower daily keeping incision clean and dry. If incisional bleeding are excessive vaginal bleeding occurs patient is to contact Dr. Bob at the clinic or proceed to the emergency room. Patient is encouraged to continue her vitamins, and to start ferrous sulfate 325 mg twice daily. Patient states that she will knot picker cloth iron [id number]. VSS, afebrile Abdomen?soft, fundus firm, incision clean dry and intact. Lochia?light Extremities?no edema. Status: Acute Reason for Visit Reason for Visit: induction Information Peripartum Data: Delivery Method: Physical Exam Urinary Catheter Management: Cordero Latex: Cath Placed During This Visit: yes, but has since been removed by the nurse Reason for Continuing Indwelling Catheter: Decision to DC Catheter Urinary Catheter Date of Insertion: 05/03/22 Urinary Catheter Time of Insertion: 04:23 Date Urinary Catheter Removed: 05/04/22 Time Urinary Catheter Discontinued: 08:20 History History History 1 Term 1 0 Miscarriages/Ectopic 0 Living Children 1 Past Pregnancies Del. Date GA/Weeks Outcome Route Wt Inf Gender Labor Lgth Comp. Anesth esia Location 05/03/22 39 live - full term 7.9 kg Male Discharge Data Studies Completed and Pending Laboratory Results WBC 19.8 10^3/uL (4.0-10.0) H 05/05/22 04:24 RBC 3.32 10^6/uL (4.1-5.3) L 05/05/22 04:24 Hgb 9.2 g/dL (11.5-15.3) L 05/05/22 04:24 Hct 27.9 % (37.0-47.0) L 05/05/22 04:24 MCV 84.0 fl (81-99) 05/05/22 04:24 MCH 27.7 pg (28.0-34.0) L 05/05/22 04:24 MCHC 33.0 g/dL (30.0-36.0) 05/05/22 04:24 RDW 14.1 % (12.1-15.1) 05/05/22 04:24 Plt Count 257 10^3/cmm (130-400) 05/05/22 04:24 MPV 10.0 fL (7.4-10.4) 05/05/22 04:24 Neut % (Auto) 78.1 % 05/05/22 04:24 Lymph % (Auto) 12.3 % 05/05/22 04:24 Walsh % (Auto) 6.0 % 05/05/22 04:24 Eos % (Auto) 1.9 % 05/05/22 04:24 Baso % (Auto) 0.3 % 05/05/22 04:24 Neut # (Auto) 15.45 10^3/uL (1.8-7.7) H 05/05/22 04:24 Lymph # (Auto) 2.4 10^3/uL (0.8-4.8) 05/05/22 04:24 Walsh # (Auto) 1.2 10^3/uL (0.2-0.9) H 05/05/22 04:24 Eos # (Auto) 0.4 10^3/uL (0.0-0.8) 05/05/22 04:24 Baso # (Auto) 0.1 10^3/uL (0.0-0.1) 05/05/22 04:24 Nucleated RBC % (auto) 0 % 05/05/22 04:24 Nucleated RBCs # 0.0 /100WBC 05/05/22 04:24 Procedures Performed 1. Cervical ripening and induction of labor 2. Primary low transverse section delivery of a viable male Vitals Last Vital Signs Temp 97.6 F 05/05/22 04:23 Pulse 99 05/05/22 07:39 Resp 16 05/04/22 15:41 BP 118/69 05/05/22 07:39 Pulse Ox 99 05/05/22 07:39 O2 Del Method 05/04/22 15:41 Discharge Plan Discharge Patient Disposition: Home Condition: Stable Prescriptions: Continued prenat.vits,son,hgk-itbd-hyrot Tablet 1 tab PO DAILY Discharge Orders: Discharge Order (Routine); Ordered 05/05/22 Ordered By: Jennyfer Myles Discharge Diet: Regular Discharge Activity: Increase activity as tolerated and Limit activity as instructed Patient Instructions: Depression (DC), Opioid Safety (DC), Preeclampsia and Eclampsia After Delivery (GEN), Hemorrhage (DC), OB [facility], OB Discharge Report, OB Food/Drug Interaction Guide, OB Care at Home, Opioid Safety, Abnormal Bleeding Activity Restrictions/Additional Instructions: No heavy lifting ,pushing, no sexual intercourse douching or tampons x6 weeks. Assessment: A. 1. S/p primary due to tachycardia/maternal fever?chorioamnionitis 2. Chorioamnionitis?resolved 3. Asymptomatic anemia Plan of Treatment: P. Discharge patient to home Follow-up [address] Bernabe Patient to continue vitamins (at home) Patient is to start ferrous sulfate (OTC) Rx?Rawlings 5/325 #10 1 p.o. every 6 hours for pain in addition to ibuprofen 800 mg Q8 with full. Discharge Attestations SERVICE CENTER COORDINATOR Time Spent in Discharge Care*: less than 30 min Coding Level of Care Code Acute Code for Chg Fwd Diagnoses Supervision of normal Z34.90
== END 2022-05-05 14:45 | disposition home or self-care (01) | DRG 788 ==
LOC: OPOB 05-04 07:33
PROVIDERS: Admitting Provider Obstetrics & Gynecology; PCP Family Medicine Adult Medicine; Visit Provider Obstetrics & Gynecology
PROC: 10D00Z1 Extraction of Products of Conception, Low, Open Approach (ICD-10-PCS; CPT 59514; principal; 2022-05-03 19:45)
DX: O41.1230 Chorioamnionitis, third trimester, not applicable or unspecified (principal); O16.4 Unspecified maternal hypertension, complicating childbirth; O99.344 Other mental disorders complicating childbirth; O99.214 Obesity complicating childbirth; O76 Abnormality in fetal heart rate and rhythm complicating labor and delivery; O77.0 Labor and delivery complicated by meconium in amniotic fluid; Z3A.39 39 weeks gestation of pregnancy; Z37.0 Single live birth; O75.89 Other specified complications of labor and delivery; F43.10 Post-traumatic stress disorder, unspecified; F41.9 Anxiety disorder, unspecified; J45.50 Severe persistent asthma, uncomplicated; F32.A Depression, unspecified
CPT/HCPCS: 12345; 36415; 51702; 59025; 85025; 85027; J0290; J1580; J2274; J2370; J2400; J2405; J2590; J2765; J2795; J3490; J7030; J7120; J7121

== ENCOUNTER → 2022-05-18 07:38 | Outpatient (BNVA) | payer MEDICAID, SELFPAY | PROVIDERS: PCP Family Medicine Adult Medicine; Visit Provider Obstetrics & Gynecology | DX: Z01.89 Encounter for other specified special examinations (principal) | CPT/HCPCS: 84315 ==

== ENCOUNTER → 2022-06-08 10:09 | Outpatient (BNVA) | payer MEDICAID, SELFPAY | PROVIDERS: PCP Family Medicine Adult Medicine; Visit Provider Obstetrics & Gynecology | DX: Z30.9 Encounter for contraceptive management, unspecified (principal) | CPT/HCPCS: 81025 ==

== ENCOUNTER → 2023-03-25 09:39 | Outpatient (BNVA) | payer MEDICAID, SELFPAY | PROVIDERS: PCP Family Medicine Adult Medicine; Visit Provider Family Medicine Adult Medicine | DX: J45.50 Severe persistent asthma, uncomplicated (principal); J30.9 Allergic rhinitis, unspecified; E66.9 Obesity, unspecified; F32.A Depression, unspecified; E66.01 Morbid (severe) obesity due to excess calories; Z68.39 Body mass index [BMI] 39.0-39.9, adult; F34.1 Dysthymic disorder | CPT/HCPCS: 80053; 84443; 85025 ==

== ENCOUNTER → 2024-03-16 14:20 | Outpatient (BNVA) | payer MEDICAID, SELFPAY | PROVIDERS: PCP Family Medicine Adult Medicine | DX: F41.9 Anxiety disorder, unspecified (principal); E61.1 Iron deficiency | CPT/HCPCS: 80053; 83540; 84439; 84443; 84481; 85025 ==

== ENCOUNTER 2024-07-06 10:22 | Outpatient (CLI) | payer MEDICAID, SELFPAY ==
--- NOTE | 2024-07-06 10:25 | XR_ITS ---
WS: [id number] Lumbar spine, 3 views, 07/06/2024 Clinical Data: chronic back pain Comparison: Lumbar spine, 11/07/2019 Findings: No compression fractures or subluxation is seen. There is degenerative disc narrowing at L5-S1. There is spondylolysis at L5-S1 but there is no anterior subluxation. The transverse processes and SI joints are normal. XR/XR lumbar spine 2-3V* [id number] Impression: L5-S1 spondylolysis.
== END 2024-07-06 10:23 | disposition home or self-care (01) ==
LOC: RAD 10:22
DX: M54.50 Low back pain, unspecified (principal); M47.817 Spondylosis without myelopathy or radiculopathy, lumbosacral region
CPT/HCPCS: 72100

== ENCOUNTER → 2024-08-03 09:40 | Outpatient (BNVA) | payer MEDICAID, SELFPAY | DX: E61.1 Iron deficiency (principal); Z68.41 Body mass index [BMI] 40.0-44.9, adult | CPT/HCPCS: 83036; 83498; 83540; 84146; 84403; 84443 ==

== ENCOUNTER → 2025-01-16 10:43 | Outpatient (BNVA) | payer MEDICAID, SELFPAY | DX: R39.89 Other symptoms and signs involving the genitourinary system (principal); R30.0 Dysuria | CPT/HCPCS: 81000; 87086 ==